=== PATIENT | female | born 1995 | race Caucasian/White ===

== ENCOUNTER → 2019-12-01 09:40 | Outpatient (BNVA) | payer MEDICAID, SELFPAY | PROVIDERS: Family Provider Nurse Practitioner; PCP Nurse Practitioner; Visit Provider Nurse Practitioner | DX: F84.0 Autistic disorder (principal); F71 Moderate intellectual disabilities; F33.9 Major depressive disorder, recurrent, unspecified | CPT/HCPCS: 99214 ==

== ENCOUNTER → 2020-02-01 08:38 | Outpatient (BNVA) | payer MEDICAID, SELFPAY | PROVIDERS: Family Provider Nurse Practitioner; PCP Nurse Practitioner; Visit Provider Nurse Practitioner | DX: F84.0 Autistic disorder (principal); F33.9 Major depressive disorder, recurrent, unspecified; Z11.1 Encounter for screening for respiratory tuberculosis | CPT/HCPCS: 80053; 85025 ==

== ENCOUNTER → 2020-02-16 07:47 | Outpatient (BNVA) | payer MEDICAID, SELFPAY | PROVIDERS: Family Provider Nurse Practitioner; PCP Nurse Practitioner; Visit Provider Nurse Practitioner | DX: F33.9 Major depressive disorder, recurrent, unspecified (principal); F71 Moderate intellectual disabilities; F84.0 Autistic disorder | CPT/HCPCS: 99214 ==

== ENCOUNTER → 2020-03-16 08:41 | Outpatient (BNVA) | payer MEDICAID, SELFPAY | PROVIDERS: Family Provider Nurse Practitioner; PCP Nurse Practitioner; Visit Provider Nurse Practitioner | DX: F33.9 Major depressive disorder, recurrent, unspecified (principal); F71 Moderate intellectual disabilities; F84.0 Autistic disorder | CPT/HCPCS: 80164 ==

== ENCOUNTER → 2020-05-10 08:55 | Outpatient (BNVA) | payer MEDICAID, SELFPAY | PROVIDERS: Family Provider Nurse Practitioner; PCP Nurse Practitioner; Visit Provider Nurse Practitioner | DX: F33.9 Major depressive disorder, recurrent, unspecified (principal); F71 Moderate intellectual disabilities; F84.0 Autistic disorder | CPT/HCPCS: 99214 ==

== ENCOUNTER → 2020-06-03 08:45 | Outpatient (BNVA) | payer MEDICAID, SELFPAY | PROVIDERS: Family Provider Nurse Practitioner; PCP Nurse Practitioner; Visit Provider Nurse Practitioner | DX: F33.9 Major depressive disorder, recurrent, unspecified (principal); F71 Moderate intellectual disabilities; F84.0 Autistic disorder | CPT/HCPCS: 80164 ==

== ENCOUNTER → 2020-07-13 07:42 | Outpatient (BNVA) | payer MEDICAID, SELFPAY | PROVIDERS: Family Provider Nurse Practitioner; PCP Nurse Practitioner; Visit Provider Nurse Practitioner | DX: F71 Moderate intellectual disabilities (principal); F84.0 Autistic disorder; F33.9 Major depressive disorder, recurrent, unspecified; F41.1 Generalized anxiety disorder | CPT/HCPCS: 99213 ==

== ENCOUNTER → 2020-09-07 10:06 | Outpatient (BNVA) | payer MEDICAID, SELFPAY | PROVIDERS: Family Provider Nurse Practitioner; PCP Nurse Practitioner; Visit Provider Nurse Practitioner | DX: Z79.899 Other long term (current) drug therapy (principal) | CPT/HCPCS: 80061; 83036 ==

== ENCOUNTER → 2020-10-11 07:48 | Outpatient (BNVA) | payer MEDICAID, SELFPAY | PROVIDERS: Family Provider Nurse Practitioner; PCP Nurse Practitioner; Visit Provider Nurse Practitioner | DX: F71 Moderate intellectual disabilities (principal); F33.9 Major depressive disorder, recurrent, unspecified | CPT/HCPCS: 99213 ==

== ENCOUNTER → 2021-01-05 10:03 | Outpatient (BNVA) | payer MEDICAID, SELFPAY | PROVIDERS: Family Provider Nurse Practitioner; PCP Nurse Practitioner; Visit Provider Nurse Practitioner | DX: F33.9 Major depressive disorder, recurrent, unspecified (principal); F71 Moderate intellectual disabilities; F84.0 Autistic disorder | CPT/HCPCS: 99214 ==

== ENCOUNTER → 2021-02-06 09:43 | Outpatient (BNVA) | payer MEDICAID, SELFPAY | PROVIDERS: Family Provider Nurse Practitioner; PCP Nurse Practitioner; Visit Provider Nurse Practitioner | DX: F84.0 Autistic disorder (principal); Z11.1 Encounter for screening for respiratory tuberculosis; J30.89 Other allergic rhinitis | CPT/HCPCS: 80053; 85025; 86592 ==

== ENCOUNTER → 2021-03-24 09:54 | Outpatient (BNVA) | payer MEDICAID, SELFPAY | PROVIDERS: Family Provider Nurse Practitioner; PCP Nurse Practitioner; Visit Provider Nurse Practitioner | DX: F71 Moderate intellectual disabilities (principal); F33.9 Major depressive disorder, recurrent, unspecified; F84.0 Autistic disorder | CPT/HCPCS: 99214 ==

== ENCOUNTER → 2021-04-14 11:01 | Outpatient (BNVA) | payer MEDICAID, SELFPAY | PROVIDERS: Family Provider Nurse Practitioner; PCP Nurse Practitioner; Visit Provider Nurse Practitioner Family | DX: R30.0 Dysuria (principal) | CPT/HCPCS: 81000 ==

== ENCOUNTER 2021-05-20 17:08 | Emergency (ER) | payer MEDICAID, SELFPAY ==
[2021-05-20 17:17] VITALS: BP 108/77; PULSE 108; RESP 22; TEMP 36.7; O2SAT 96; BMI 28.3
--- NOTE | 2021-05-20 17:27 | ECG_ITS ---
[facility] Test Date: 2021-05-20 Pat Name: Gris Luz Maria Department: Room: Gender: Female Electric Train Driver: : 1995 Requested By: Hoang Gtz Order Number: [id number] Radha MD: Yung Spencer M.D. Measurements Intervals [place] Rate: 126 P: 29 TN: 94 QRS: 33 QRSD: 172 T: 249 QT: 289 QTc: 418 Interpretive Statements Possible SINUS TACHYCARDIA WITH SHORT TN INTERVAL Heavy baseline artifact; need to repeat Defective EKG Electronically Signed On 05-21-2021 16:29:32 CDT by Yung Spencer M.D. [id number]
--- NOTE | 2021-05-20 17:38 | W.ED.ABDPA2 ---
HPI - Abdominal Pain General: Chief Complaint: Abdominal Pain Stated Complaint: no appetite sob Time Seen by Provider: 05/20/21 17:25 History of Present Illness: HPI narrative: Patient is a 25-year-old female comes to the ED with constipation. Patient has a past medical history of autistic disorder with moderate to severe intellectual disability. Patient is nonverbal and lives at the [facility] and has a fork lift truck operator that is present with her today and providing the history. Economic Research Assistant said patient has not had a bowel movement in about a week and she has had decreased appetite as well for the past week. Economic Research Assistant says patient chronically suffers with constipation. Although patient is nonverbal, fork lift truck operator sees signs of evidence of abdominal pain because she will put her hands over her abdomen on occasion. Patient has been given sennoside, but has not helped her bowel movements. Economic Research Assistant also noticed patient is little short of breath but is unsure if that is due to abdominal pain or something else. Denies any fever, chills, emesis, chest pain, diarrhea or UTI symptoms. Associated Symptoms: Reports constipation; Denies chills, diarrhea, dysuria, fever(s), hematochezia, hematuria, nausea and vomiting Review of Systems Const: Denies: fever(s), chills or fatigue Eyes: Denies: change in vision or eye discomfort ENMT: Denies: throat pain, odynophagia, nasal discharge or nasal congestion Card: Denies: chest pain, palpitations, edema, swelling of feet/ankles, dyspnea on exertion or orthopnea Resp: Reports: dyspnea; Denies: productive cough or non-productive cough GI: Reports: constipation; Denies: abdominal pain, nausea, vomiting, diarrhea or hematochezia : Denies: flank pain, dysuria or hematuria Musc: Denies: neck pain, back pain or extremity swelling Skin/Breast: Denies: rash or new lesions Neuro: Denies: headache(s), numbness in extremities or weakness in extremities PFSH ED PFSH: Medical History Autistic disorder Depo-Provera contraceptive status Environmental and seasonal allergies Major depressive disorder, recurrent, unspecified Moderate intellectual disabilities On combination antipsychotic drug therapy Surgical History No history of previous surgery Family History Other Unknown family medical history Social History Smoking and tobacco status: never smoked Second hand smoke exposure: No Smoking risk assessment/counseling performed?: No Alcohol intake: never Desire information about alcohol rehabilitation?: No Counseling given: No Desire information about substance/drug rehabilitation?: No Counseling given: No Adopted: No Caregiver/support person: Yes Lives independently: No Household members: other Housing: House Marital status: Single Number of children: 0 service: No Current occupational status: disabled Current occupational exposures/hazards: No Pets and animals: No History of recent travel: No Sexually active: No Current gender identity: Female Special maik needs: No Financial difficulty paying for basics: Not Applicable Physical Exam Const: COMMON NORMALS: no acute distress and alert EXAM LIMITATIONS: behavioral limitations (Patient has autism with moderate to severe intellectual disability) HENMT: COMMON NORMALS: normocephalic HEAD & SCALP: normocephalic MOUTH: Normal oral and palatal mucosa present THROAT: posterior oropharynx normal and uvula midline Neck/C-Spine: COMMON NORMALS: supple GENERAL: Yes normal visual inspection Resp: COMMON NORMALS: normal respiratory effort, No retractions, No use of accessory muscles and clear to auscultation bilaterally AUSCULTATION: clear to auscultation bilaterally Cardio: COMMON NORMALS: regular rate, regular rhythm, S1 normal heart sound present, S2 normal heart sound present, No gallops present (Cardio), No clicks present (Cardio), No murmurs present (Cardio) and Peripheral pulses 2+ throughout RATE: regular rate RHYTHM: regular rhythm HEART SOUNDS: S1 normal heart sound present and S2 normal heart sound present PERIPHERAL PULSES: Peripheral pulses 2+ throughout GI: COMMON NORMALS: Soft to palpation, non-tender and no masses AUSCULTATION: Yes Hypoactive bowel sounds present PALPATION: Yes Soft to palpation and No Guarding due to palpation present (GI) : COMMON NORMALS: Yes no CVA tenderness BLADDER/KIDNEY EXAM: Yes no CVA tenderness Back/Pelvis: COMMON NORMALS: no CVA tenderness Extremity: COMMON NORMALS: normal to inspection Neuro: SENSORIUM/ORIENTATION: Yes alert GAIT: Yes Normal gait present Skin: GENERAL SKIN EXAM: dry skin Course Reevaluation(s): Reevaluation #1: Patient ended up having a bowel movement while here in the ED. Vital Signs: Vital signs: Vital Signs Temperature 0 F L 05/20/21 20:58 Pulse Rate 0 L 05/20/21 20:58 Respiratory Rate 0 L 05/20/21 20:58 Blood Pressure 0/0 05/20/21 20:58 Pulse Oximetry 0 L 05/20/21 20:58 MDM - Abdominal Pain MDM Narrative: Medical decision making narrative: Patient is a 25-year-old female comes to the ED with constipation. Patient is nonverbal and has autism and moderate to severe intellectual disability. Patient lives at the [facility] and has a fork lift truck operator. Economic Research Assistant says she has not had a bowel movement in close to 7 days. Upon exam of patient she is moving around the room a lot and has trouble sitting still. She appears nontoxic and in no acute distress or pain. Patient's fork lift truck operator says this is normal for her. When palpating her abdomen she did not seem to show any signs of pain or tenderness and there is no guarding. She did have hypoactive bowel sounds. While here in the ED patient continued to get more agitated and resistant to any labs or imaging. She was unable to stay still long enough for x-ray to do imaging and for nursing to draw any labs. She was given a dose of Ativan and Benadryl to see if that would help calm her down and it did not work. Patient then had a bowel movement while here in the ED. Since she started getting more aggressive with staff I recommended that we send patient home with some mag citrate and a Fleet enema to help her with bowel movements while at the [facility]. Economic Research Assistant agreed and thought that it would be best for her to go back to the facility. I told fork lift truck operator to bring patient back if she is having any worsening symptoms. Follow-up with PCP in 7 days for reevaluation. Patient's fork lift truck operator understood and agreed with plan. Lab Data: Labs: Lab Results 05/20/21 Range/Units 18:10 Urine Color Yellow (Yellow) Urine Appearance Sl hazy (CLEAR) Urine pH 7 (5-7) Ur Specific Gravit y 1.010 (1.005-1.030) Urine Protein 1+ H (Negative) Urine Glucose (UA) Norm (Normal) Urine Ketones Negative (Negative) Urine Blood 3+ H (Negative) Urine Nitrate Negative (Negative) Urine Bilirubin Neg (Negative) Urine Urobilinogen 1 H (Negative) mg/dL Ur Leukocyte Donna ase 2+ H (Negative) Urine RBC 5-10 H (0-2) /hpf Urine WBC 5-10 H (0-5) /hpf Ur Squamous Epith Cells 5-10 H (0-5) /hpf Amorphous Sediment Not Reportable Urine Bacteria 2+ H (NONE) /hpf Discharge Plan Discharge Patient Disposition: Home Clinical Impression: Constipation Qualifiers: Constipation type: slow transit constipation Qualified Code(s): K59.01 - Slow transit constipation Condition: Stable Prescriptions: New Fleet Enema 19-7 gram/118 mL enema 118 ml RI ONCE PRN (Reason: constipation) Qty: 133 RF: 0 No Action medroxyprogesterone [Depo-Provera] 150 mg/mL suspension 150 mg IM .q 3 months Qty: 1 RF: 2 diphenhydramine HCl [Benadryl] 25 mg capsule 25 mg PO .2 times day PRN (Reason: allergy symptoms) Qty: 30 RF: 2 Probiotic 15 billion cell capsule, sprinkle 1 cap PO .2 times day Qty: 60 RF: 0 lorazepam [Ativan] 1 mg tablet 1 mg PO DAILY PRN (Reason: sevee agitation) Qty: 30 RF: 1 lorazepam [Ativan] 0.5 mg tablet 0.5 mg PO QID Qty: 120 RF: 2 divalproex [Depakote ER] 250 mg tablet extended release 24 hr 250 mg PO .COMPLEX Qty: 90 RF: 2 clonidine HCl 0.1 mg tablet 0.1 mg PO TID Qty: 90 RF: 2 chlorpromazine 50 mg tablet 50 mg PO QID Qty: 120 RF: 2 trazodone 100 mg tablet 300 mg PO .at bed Qty: 60 RF: 2 sertraline [Zoloft] 100 mg tablet 200 mg PO DAILY Qty: 60 RF: 2 quetiapine [Seroquel XR] 300 mg tablet extended release 24 hr 300 mg PO QID Qty: 120 RF: 2 loperamide [Imodium A-D] 2 mg tablet 2 mg PO TID PRN (Reason: loose stool) Qty: 7 RF: 5 sennosides [Senna Lax] 8.6 mg tablet 8.6 mg PO BID Qty: 60 RF: 5 acetaminophen 325 mg tablet 325 mg PO QID PRN (Reason: pain or fever) Qty: 30 RF: 2 Benadryl Itch Stopping 1-0.1 % cream 1 applic topical QID PRN (Reason: itching) Qty: 28.3 RF: 2 magnesium hydroxide [Milk of Magnesia] 400 mg/5 mL suspension 10 ml PO DAILY PRN (Reason: constipation) Qty: 400 RF: 5 Discharge Orders: Discharge ED (Routine); Ordered 05/20/21 Ordered By: Hoang Gtz Referrals: Anayeli Carr, SKEIN INSPECTOR-C [Primary Care Provider] - Discharge Diet: Regular Discharge Activity: Resume usual activity Patient Instructions: Constipation (ED) Activity Restrictions/Additional Instructions: Follow-up with medical provider as directed in 7 days for reevaluation. Have patient take the 296ml of magnesium citrate sent home with her tonight or tomorrow. Patient can use the Fleet enema tomorrow or the next day as needed for constipation. Continue taking all other previously prescribed medications. Make sure patient drinks plenty of fluids and stays hydrated. Return to the ER or your medical provider if condition worsens. Please read and understand discharge instructions. Thank you for choosing [facility] for your healthcare needs today. Please realize this is an emergency room and that we are providing you with a medical screening exam and this may not be complete and all inclusive of all the testing and or work up that you may need to determine your ailment or severity of your illness. It is very important that you follow up as instructed or that you return to the Emergency Department should you have concerns or if your condition changes or worsens in any way. Coding Level of Care Code ED Controls Technician for Trevor Fwd Exam Comprehensive
[2021-05-20 18:16] VITALS: BP 129/88; PULSE 98; RESP 16; O2SAT 98
[2021-05-20] MEDS: LORazepam 2 mg Tablet PO (18:43)
[2021-05-20] MEDS: diphenhydrAMINE 25 mg Capsule PO (18:43)
[2021-05-20 18:44] LABS: Urine Color Yellow (Yellow)
[2021-05-20 18:45] LABS: Bilirubin Urine Neg (Negative); Blood Urine 3+ (Negative); Glucose Urine UA Norm (Normal); Ketones Urine Negative (Negative); Leukocyte Esterase Urine 2+ (Negative); Nitrate Urine Negative (Negative); Protein Urine 1+ (Negative); Urine Appearance SL Hazy (CLEAR); Urobilinogen Urine 1 mg/dL (Negative); pH Urine 7 (5-7)
[2021-05-20 18:46] LABS: Add Urine Culture? Yes; Bacteria Urine 2+ /hpf
--- NOTE | 2021-05-20 20:27 | PC.NURSE ---
Patient will not tolerate any procedures at this time, she is combative with staff and care givers.
[2021-05-20 20:58] VITALS: BP 0/0; PULSE 0; RESP 0; TEMP -17.7; TEMP 0; O2SAT 0
== END 2021-05-20 21:00 | disposition home or self-care (01) ==
PROVIDERS: Emergency Provider Physician Assistant; PCP Nurse Practitioner
DX: K59.01 Slow transit constipation (principal); F84.0 Autistic disorder; F79 Unspecified intellectual disabilities
CPT/HCPCS: 81001; 87086; 93005; 99283

== ENCOUNTER → 2021-05-26 07:46 | Outpatient (BNVA) | payer MEDICAID, SELFPAY | PROVIDERS: PCP Nurse Practitioner; Visit Provider Nurse Practitioner | DX: F84.0 Autistic disorder (principal); F33.9 Major depressive disorder, recurrent, unspecified; F71 Moderate intellectual disabilities | CPT/HCPCS: 99214 ==

== ENCOUNTER → 2021-06-07 08:41 | Outpatient (BNVA) | payer MEDICAID, SELFPAY | PROVIDERS: PCP Nurse Practitioner; Visit Provider Nurse Practitioner | DX: F84.0 Autistic disorder (principal); F71 Moderate intellectual disabilities; Z79.899 Other long term (current) drug therapy | CPT/HCPCS: 80061; 80164 ==

== ENCOUNTER 2021-06-16 10:07 | Emergency (ER) | payer MEDICAID, SELFPAY ==
[2021-06-16 10:42] VITALS: PULSE 74; RESP 15; TEMP 36.7; O2SAT 95; BMI 26.9
--- NOTE | 2021-06-16 13:25 | XR_ITS ---
WS: [id number] KUB, AP view portable upright, 06/16/2021 Clinical Data: constipation Comparison: KUB, 05/24/2017. Findings: No abnormal intraabdominal masses or calcifications are seen. There is no dilatated small bowel or ev idence of obstruction. There is no free air beneath the diaphragms. There is air in the small bowel and colon. The inferior portion of the abdomen is not included on the examination. XR/XR KUB portable [id number] Impression: Moderate generalized ileus.
--- NOTE | 2021-06-16 13:26 | W.ED.ABDPA2 ---
HPI - Abdominal Pain General: Chief Complaint: Abdominal Pain Stated Complaint: NO BM X8 DAYS Time Seen by Provider: 06/16/21 13:18 History of Present Illness: HPI narrative: 25-year-old female presents emergency room accompanied by 2 caregivers. Stating she has not had a bowel movement for 8 days. She had seen a nurse practitioner give her Senokot and Colace that also used some aches make milk of magnesia and yesterday some mag museum citrate she had no response from it. Her intellectual disability is severe. To the point where she will not allow blood pressure and initially would not allow an exam. She has had problems with chronic constipation issues in the past. MD elicited complaint: abdominal pain Pertinent past history: none Radiation: none Exacerbating factors: nothing Relieving factors: nothing PFSH ED PFSH: Medical History Autistic disorder Depo-Provera contraceptive status Environmental and seasonal allergies Major depressive disorder, recurrent, unspecified Moderate intellectual disabilities On combination antipsychotic drug therapy On combination antipsychotic drug therapy On valproic acid therapy Surgical History No history of previous surgery Family History Other Unknown family medical history Social History Smoking and tobacco status: never smoked Second hand smoke exposure: No Smoking risk assessment/counseling performed?: No Alcohol intake: never Desire information about alcohol rehabilitation?: No Counseling given: No Desire information about substance/drug rehabilitation?: No Counseling given: No Adopted: No Caregiver/support person: Yes Lives independently: No Household members: other Housing: House Marital status: Single Number of children: 0 service: No Current occupational status: disabled Current occupational exposures/hazards: No Pets and animals: No History of recent travel: No Sexually active: No Current gender identity: Female Special maik needs: No Financial difficulty paying for basics: Not Applicable Physical Exam HENMT: COMMON NORMALS: normocephalic and atraumatic HEAD & SCALP: normocephalic and atraumatic Neck/C-Spine: COMMON NORMALS: no JVD Resp: COMMON NORMALS: normal respiratory effort, No retractions, No use of accessory muscles and clear to auscultation bilaterally AUSCULTATION: clear to auscultation bilaterally Cardio: COMMON NORMALS: no JVD, regular rate, regular rhythm and No murmurs present (Cardio) RATE: regular rate RHYTHM: regular rhythm GI: COMMON NORMALS: Soft to palpation and No hepatosplenomegaly present AUSCULTATION: Yes normoactive bowel sounds PALPATION: Yes Soft to palpation, No Tenderness to palpation present (GI), No Guarding due to palpation present (GI) and Yes No hepatosplenomegaly present Course Vital Signs: Vital signs: Vital Signs Temperature 98.0 F 06/16/21 10:42 Pulse Rate 74 06/16/21 10:42 Respiratory Rate 15 06/16/21 10:42 Pulse Oximetry 95 06/16/21 10:42 MDM - Abdominal Pain MDM Narrative: Medical decision making narrative: Lab abnormalities no significant constipation on the plain film. Increase lactulose till adequate results achieved follow-up with primary care Lab Data: Labs: Lab Results 06/16/21 06/16/21 06/16/21 Range/Units 14:15 14:15 14:15 WBC 4.4 (4.0-10.0) 10^3/ uL RBC 3.61 L (4.1-5.3) 10^6/u L Hgb 11.9 (11.5-15.3) g/dL Hct 36.0 L (37.0-47.0) % MCV 99.7 H (81-99) fl MCH 33.0 (28.0-34.0) pg MCHC 33.1 (30.0-36.0) g/dL RDW 11.7 L (12.1-15.1) % Plt Count 202 (130-400) 10^3/c mm MPV 10.4 (7.4-10.4) fL Neut % (Auto) 31.7 % Lymph % (Auto) 56.6 % Pine % (Auto) 11.5 % Eos % (Auto) 0.0 % Baso % (Auto) 0.2 % Neut # (Auto) 1.40 L (1.8-7.7) 10^3/u L Lymph # (Auto) 2.5 (0.8-4.8) 10^3/u L Pine # (Auto) 0.5 (0.2-0.9) 10^3/u L Eos # (Auto) 0.0 (0.0-0.8) 10^3/u L Baso # (Auto) 0.0 (0.0-0.1) 10^3/u L Nucleated RBC % (a uto) 0 % Nucleated RBCs # 0.0 /100WBC Sodium 137 (136-145) mmol/L Potassium 4.5 (3.5-5.1) mmol/L Chloride 103 (98-107) mmol/L Carbon Dioxide 24 (22-29) mmol/L Anion Gap 14.5 (5-19) BUN 12 (6-20) mg/dL Creatinine 0.6 (0.5-0.9) mg/dL GFR Calculation 119.9 (90-130) mL/min Glucose 100 (65-115) mg/dL Calculated Osmolal ity 284 L (285-295) mOsm/k g Calcium 8.6 (8.5-10.5) mg/dL Total Bilirubin 0.2 (0.15-1.2) mg/dL AST 15 (0-32) U/L ALT 9 (0-33) U/L Alkaline Phosphata se 43 (35-105) IU/L Total Protein 6.7 (6.6-8.7) g/dL Albumin 4.2 (3.5-5.2) g/dL Globulin 2.5 (1.3-4.6) g/dL Lipase 21 (13-60) U/L HCG, Qual Negative (Negative) Discharge Plan Discharge Patient Disposition: Home Clinical Impression: Chronic constipation, Autistic disorder, Moderate intellectual disabilities Condition: Stable Prescriptions: New lactulose 20 gram/30 mL solution 30 g PO BID Qty: 2880 RF: 0 No Action clonidine HCl 0.1 mg tablet 0.1 mg PO TID Qty: 90 RF: 2 chlorpromazine 50 mg tablet 50 mg PO QID Qty: 120 RF: 2 lorazepam [Ativan] 0.5 mg tablet 0.5 mg PO QID Qty: 120 RF: 2 sertraline [Zoloft] 100 mg tablet 200 mg PO DAILY Qty: 60 RF: 2 divalproex [Depakote ER] 250 mg tablet extended release 24 hr 250 mg PO .COMPLEX Qty: 90 RF: 2 quetiapine [Seroquel XR] 300 mg tablet extended release 24 hr 300 mg PO .COMPLEX Qty: 120 RF: 2 lorazepam [Ativan] 1 mg tablet 1 mg PO DAILY PRN (Reason: sevee agitation) Qty: 30 RF: 1 polyethylene glycol 3350 [Miralax] 17 gram/dose powder 17 g PO BID Qty: 850 RF: 11 docusate sodium [Colace] 100 mg capsule 100 mg PO BID Qty: 60 RF: 11 lactulose 20 gram/30 mL solution 20 g PO BID MDD SEE PHARMACY COMMENT PRN (Reason: constipation) Qty: 1200 RF: 11 polyethylene glycol 3350 [Miralax] 17 gram/dose powder 17 g PO DAILY PRN (Reason: constipation) Qty: 850 RF: 11 magnesium citrate Solution 150 ml PO BID PRN (Reason: constipation) Qty: 296 RF: 11 loperamide [Imodium A-D] 2 mg tablet 2 mg PO TID PRN (Reason: loose stool) Qty: 7 RF: 5 acetaminophen 325 mg tablet 325 mg PO QID PRN (Reason: pain or fever) Qty: 30 RF: 2 Benadryl Itch Stopping 1-0.1 % cream 1 applic topical QID MDD SEE PHARMACY COMMENT PRN (Reason: itching) Qty: 28.3 RF: 2 trazodone 100 mg tablet 300 mg PO BEDTIME RF: 0 Benadryl 25 mg capsule 25 mg PO BID PRN (Reason: allergy symptoms) RF: 0 Fleet Enema 19-7 gram/118 mL enema 118 ml AL PRN MDD SEE PHARAMCY COMMENT PRN (Reason: constipation) RF: 0 Depo-Provera 150 mg/mL suspension 150 mg IM Q90D RF: 0 Discharge Orders: Discharge ED (Routine); Ordered 06/16/21 Ordered By: Omid Gray Referrals: Anayeli Carr, NETWORK INTELLIGENCE ANALYST-C [Primary Care Provider] - Discharge Diet: Clear Liquid Discharge Activity: Increase activity as tolerated Patient Instructions: Opioid Safety Coding Level of Care Code ED Director Building for Trevor Ulloa
[2021-06-16 14:29] LABS: Basophils % 0.2 %; Hemoglobin 11.9 g/dL (11.5-15.3); Lymphocytes # 2.5 10^3/uL (0.8-4.8); Lymphocytes % 56.6 %; Mean Corpuscular HGB Conc 33.1 g/dL (30.0-36.0); Mean Corpuscular Volume 99.7 fl (81-99); Mean Platelet Volume 10.4 fL (7.4-10.4); Monocytes # 0.5 10^3/uL (0.2-0.9); Monocytes % 11.5 %; Neutrophils % 31.7 %; Nucleated Red Blood Cells % 0 %; Platelet Count 202 10^3/cmm (130-400); Red Blood Count 3.61 10^6/uL (4.1-5.3); Red Cell Distribution Width 11.7 % (12.1-15.1); White Blood Count 4.4 10^3/uL (4.0-10.0)
[2021-06-16 14:42] LABS: HCG, Serum Qual Negative (Negative)
[2021-06-16 14:51] LABS: Alanine Aminotransferase 9 U/L (0-33); Albumin Level 4.2 g/dL (3.5-5.2); Alkaline Phosphatase 43 IU/L (35-105); Anion Gap 14.5 (5-19); Aspartate Amino Transferase 15 U/L (0-32); Blood Urea Nitrogen 12 mg/dL (6-20); Calcium 8.6 mg/dL (8.5-10.5); Carbon Dioxide 24 mmol/L (22-29); Chloride 103 mmol/L (98-107); Globulin 2.5 g/dL (1.3-4.6); Glomerular Filtration Rate 119.9 mL/min (90-130); Glucose 100 mg/dL (65-115); Lipase 21 U/L (13-60); Osmolality Calculated 284 mOsm/kg (285-295); Potassium 4.5 mmol/L (3.5-5.1); Sodium 137 mmol/L (136-145); Total Bilirubin 0.2 mg/dL (0.15-1.2); Total Protein 6.7 g/dL (6.6-8.7)
== END 2021-06-16 15:06 | disposition home or self-care (01) ==
PROVIDERS: Emergency Provider Family Medicine; PCP Nurse Practitioner
DX: K59.09 Other constipation (principal); F84.0 Autistic disorder; F71 Moderate intellectual disabilities
CPT/HCPCS: 74018; 80053; 83690; 84703; 85025; 99282

== ENCOUNTER → 2021-06-20 13:28 | Outpatient (BNVA) | payer MEDICAID, SELFPAY | PROVIDERS: PCP Nurse Practitioner; Visit Provider Nurse Practitioner Family | DX: K59.09 Other constipation (principal); G47.10 Hypersomnia, unspecified; N39.0 Urinary tract infection, site not specified | CPT/HCPCS: 81000; 87086 ==

== ENCOUNTER → 2021-06-21 13:12 | Outpatient (BNVA) | payer MEDICAID, SELFPAY | PROVIDERS: PCP Nurse Practitioner; Visit Provider Nurse Practitioner | DX: F71 Moderate intellectual disabilities (principal); F84.0 Autistic disorder; F34.9 Persistent mood [affective] disorder, unspecified | CPT/HCPCS: 99214 ==

== ENCOUNTER → 2021-07-19 09:41 | Outpatient (BNVA) | payer MEDICAID, SELFPAY | PROVIDERS: PCP Nurse Practitioner; Visit Provider Nurse Practitioner | DX: F71 Moderate intellectual disabilities (principal); F84.0 Autistic disorder; F34.9 Persistent mood [affective] disorder, unspecified | CPT/HCPCS: 99214 ==

== ENCOUNTER → 2021-10-11 11:07 | Outpatient (BNVA) | payer MEDICAID, SELFPAY | PROVIDERS: PCP Nurse Practitioner; Visit Provider Nurse Practitioner | DX: F84.0 Autistic disorder (principal); F71 Moderate intellectual disabilities; F34.9 Persistent mood [affective] disorder, unspecified | CPT/HCPCS: 99214 ==

== ENCOUNTER 2022-01-08 10:38 | Emergency (ER) | payer MEDICAID, SELFPAY ==
[2022-01-08 11:00] VITALS: BP 106/77; PULSE 132; RESP 18; TEMP 36.3; O2SAT 96; BMI 23.6
--- NOTE | 2022-01-08 11:17 | XR_ITS ---
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 Healing fracture of the distal fifth metacarpal with no significant deformity. No other significant bony or joint abnormality. XR/XR hand RT min 3V* [id number] IMPRESSION: Healing fractures as above.
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
--- NOTE | 2022-01-08 11:17 | XR_ITS ---
WS: [id number] XR hand LT min 3V* [id number] REASON FOR EXAM: swelling in fingers FINDINGS: No fracture or focal bone lesion. The joint spaces of the left hand are well intact and well preserved. No soft tissue abnormality. XR/XR hand LT min 3V* [id number] IMPRESSION: No acute abnormality.
[2022-01-08] MEDS: HYDROcodone-acetaminophen 5-325 mg Tablet 1 TAB PO (12:22)
--- NOTE | 2022-01-09 10:44 | DCPLANNER ---
Addendum entered by Adela Sherman 02/14/22 20:46: Patient had a follow up appointment scheduled with ortho - patient did attend appointment. Addendum entered by Adela Sherman 01/10/22 07:43: Patient has a follow up appointment scheduled for Sunday, January 30, 2022 at 2:[address] Smith at ortho. Clinic will call patient with appointment information. Original Note: call or contact centre manager had message to schedule a follow up appointment for patient with ortho. call or contact centre manager sent patients information to the front staff at ortho thru workload messaging system. Patients information will be printed and reviewed. Clinic will call patient wit appointment information.
== END 2022-01-08 12:35 | disposition home or self-care (01) ==
PROVIDERS: Emergency Provider Physician Assistant; PCP Nurse Practitioner
DX: S62.64 Nondisplaced fracture of proximal phalanx of finger (principal); X58.XXXD Exposure to other specified factors, subsequent encounter; M79.89 Other specified soft tissue disorders; F84.0 Autistic disorder; F71 Moderate intellectual disabilities
CPT/HCPCS: 73130; 99283

== ENCOUNTER → 2022-01-10 09:57 | Outpatient (BNVA) | payer MEDICAID, SELFPAY | PROVIDERS: PCP Nurse Practitioner; Visit Provider Nurse Practitioner | DX: F84.0 Autistic disorder (principal); F34.9 Persistent mood [affective] disorder, unspecified; F71 Moderate intellectual disabilities | CPT/HCPCS: 99214 ==

== ENCOUNTER → 2022-01-26 11:29 | Outpatient (BNVA) | payer MEDICAID, SELFPAY | PROVIDERS: PCP Nurse Practitioner; Visit Provider Nurse Practitioner | DX: R39.9 Unspecified symptoms and signs involving the genitourinary system (principal) | CPT/HCPCS: 81003; 87077; 87086; 87184 ==

== ENCOUNTER → 2022-01-30 14:30 | Outpatient (BNVA) | payer MEDICAID, SELFPAY | PROVIDERS: PCP Nurse Practitioner; Referring Provider Physician Assistant; Visit Provider Orthopaedic Surgery | DX: S62.640A Nondisplaced fracture of proximal phalanx of right index finger, initial encounter for closed fracture (principal); X58.XXXA Exposure to other specified factors, initial encounter | CPT/HCPCS: 99202 ==

== ENCOUNTER → 2022-02-26 10:25 | Outpatient (BNVA) | payer MEDICAID, SELFPAY | PROVIDERS: PCP Nurse Practitioner; Visit Provider Nurse Practitioner | DX: Z11.3 Encounter for screening for infections with a predominantly sexual mode of transmission (principal); J30.89 Other allergic rhinitis; Z11.1 Encounter for screening for respiratory tuberculosis; F71 Moderate intellectual disabilities | CPT/HCPCS: 80053; 85025; 86592 ==

== ENCOUNTER → 2022-02-28 13:48 | Outpatient (BNVA) | payer MEDICAID, SELFPAY | PROVIDERS: PCP Nurse Practitioner; Visit Provider Nurse Practitioner | DX: Z11.3 Encounter for screening for infections with a predominantly sexual mode of transmission (principal); F84.0 Autistic disorder | CPT/HCPCS: 81000 ==

== ENCOUNTER → 2022-03-28 12:31 | Outpatient (BNVA) | payer MEDICAID, SELFPAY | PROVIDERS: PCP Nurse Practitioner; Visit Provider Nurse Practitioner | DX: F84.0 Autistic disorder (principal); F71 Moderate intellectual disabilities; F34.9 Persistent mood [affective] disorder, unspecified | CPT/HCPCS: 99214 ==

== ENCOUNTER → 2022-04-14 14:03 | Outpatient (BNVA) | payer MEDICAID, SELFPAY | PROVIDERS: PCP Nurse Practitioner; Visit Provider Registered Nurse Neonatal Intensive Care | DX: N39.0 Urinary tract infection, site not specified (principal); R39.9 Unspecified symptoms and signs involving the genitourinary system | CPT/HCPCS: 81000; 87086 ==

== ENCOUNTER 2022-07-09 11:43 | Emergency (ER) | payer MEDICAID, SELFPAY ==
[2022-07-09 11:55] VITALS: BP 124/88; PULSE 114; RESP 16; TEMP 36.4; O2SAT 98
--- NOTE | 2022-07-09 12:07 | XR_ITS ---
WS: [id number] XR shoulder RT min 2V* [id number] REASON FOR EXAM: fall injury with shoulder pain FINDINGS Suboptimal positioning for the examination. No acute fracture. There is deformity of the clavicle. Unable to determine the chronicity from the ro tated view. Acromioclavicular and glenohumeral joints are intact. No soft tissue abnormality. XR/XR shoulder RT min 2V* [id number] IMPRESSION: No definite acute abnormality. However, if there is pain over the right clavicl e, a nonrotated AP view is recommended in follow-up.
--- NOTE | 2022-07-09 12:52 | W.ED.FALL ---
HPI - Fall General: Chief Complaint: Fall Stated Complaint: fall-right shoulder/arm pain Time Seen by Provider: 07/09/22 11:59 History of Present Illness: Patient is a 26-year-old female that comes to the ED with right shoulder injury. Airline Dispatcher is providing history. Patient has history of moderate intellectual disability, autism and is nonverbal. She had a fall down some steps last night. Denies any head trauma, loss of consciousness or headaches. Patient has not been moving right arm much since injury. She has some bruising and swelling around her right shoulder and collarbone. Associated symptoms-after fall: Denies abdominal pain, chest pain, headache(s), hematuria or neck pain Review of Systems Const: Denies: fever(s), chills or fatigue Eyes: Denies: change in vision or eye discomfort ENMT: Denies: throat pain, odynophagia, nasal discharge or nasal congestion Card: Denies: chest pain, palpitations, edema, swelling of feet/ankles, dyspnea on exertion or orthopnea Resp: Denies: dyspnea, productive cough or non-productive cough GI: Denies: abdominal pain, nausea, vomiting, diarrhea, constipation or hematochezia : Denies: flank pain, dysuria or hematuria Musc: Reports: extremity pain (Right shoulder pain); Denies: neck pain, back pain or extremity swelling Skin/Breast: Denies: rash or new lesions Neuro: Denies: headache(s), numbness in extremities or weakness in extremities [facility] ED PFSH: Medical History Acute bacterial conjunctivitis of left eye Autistic disorder Depo-Provera contraceptive status Environmental and seasonal allergies Major depressive disorder, recurrent, unspecified Moderate intellectual disabilities On combination antipsychotic drug therapy On combination antipsychotic drug therapy On valproic acid therapy Persistent mood [affective] disorder, unspecified Psychiatric care Surgical History No history of previous surgery Family History Other Unknown family medical history Social History Smoking and tobacco status: never smoked Second hand smoke exposure: No Smoking risk assessment/counseling performed?: No Alcohol intake: never Desire information about alcohol rehabilitation?: No Counseling given: No Desire information about substance/drug rehabilitation?: No Counseling given: No Adopted: No Caregiver/support person: Yes Lives independently: No Household members: other Housing: House Marital status: Single Number of children: 0 service: No Current occupational status: disabled Current occupational exposures/hazards: No Pets and animals: No History of recent travel: No Sexually active: No Current gender identity: Female Special maik needs: No Financial difficulty paying for basics: Not Applicable Physical Exam Const: COMMON NORMALS: alert EXAM LIMITATIONS: other limitations (NonverbalModerate intellectual disability, autism and) HENMT: COMMON NORMALS: normocephalic HEAD & SCALP: normocephalic MOUTH: Normal oral and palatal mucosa present THROAT: posterior oropharynx normal and uvula midline Neck/C-Spine: COMMON NORMALS: supple GENERAL: Yes normal visual inspection Resp: COMMON NORMALS: normal respiratory effort, No retractions, No use of accessory muscles and clear to auscultation bilaterally AUSCULTATION: clear to auscultation bilaterally Cardio: COMMON NORMALS: regular rate, regular rhythm, S1 normal heart sound present, S2 normal heart sound present, No gallops present (Cardio), No clicks present (Cardio), No murmurs present (Cardio) and Peripheral pulses 2+ throughout RATE: regular rate RHYTHM: regular rhythm HEART SOUNDS: S1 normal heart sound present and S2 normal heart sound present PERIPHERAL PULSES: Peripheral pulses 2+ throughout GI: COMMON NORMALS: Normal to inspection, nondistended, normoactive bowel sounds present, Soft to palpation, non-tender and no masses PALPATION: Yes Soft to palpation : COMMON NORMALS: Yes no CVA tenderness BLADDER/KIDNEY EXAM: Yes no CVA tenderness Back/Pelvis: COMMON NORMALS: no CVA tenderness Extremity: NARRATIVE EXTREMITY EXAM: Right shoulder?ecchymosis and swelling noted around anterior aspect of right shoulder and right clavicle. Limited range of motion due to pain. Neurovascular tact distally. Neuro: SENSORIUM/ORIENTATION: Yes alert GAIT: Yes Normal gait present Skin: GENERAL SKIN EXAM: dry skin Course Vital Signs: Vital signs: Vital Signs Temperature 97.6 F 07/09/22 11:55 Pulse Rate 103 H 07/09/22 13:15 Respiratory Rate 19 H 07/09/22 13:15 Blood Pressure 117/80 07/09/22 13:15 Pulse Oximetry 97 07/09/22 13:15 Oxygen Delivery Me thod 07/09/22 11:55 MDM - Fall Medical Decision Making Patient is a 26-year-old female that comes to the ED with right shoulder injury. Airline Dispatcher is providing history. Patient has history of moderate intellectual disability, autism and is nonverbal. She had a fall down some steps last night. Denies any head trauma, loss of consciousness or headaches. Patient has not been moving right arm much since injury. Vital stable. X-ray shows ecchymosis swelling and tenderness of right clavicle. Shoulder x-ray shows right clavicle deformity. Patient diagnosed with a closed fracture of right clavicle and was put in a shoulder sling. I placed an order with case management for patient be referred to Ortho for follow-up. Patient was stable for discharge home and sent with prescription for tramadol for pain. Return ED precautions given. Patient's workday consultant understood agreed with plan. Lab Data Radiology Impressions Shoulder X-Ray 07/09/22 12:07 IMPRESSION: No definite acute abnormality. However, if there is pain over the right clavicle, a nonrotated AP view is recommended in follow-up. Discharge Plan Discharge Patient Disposition: Home Clinical Impression: Closed fracture of right clavicle Qualifiers: Encounter type: initial encounter Clavicle location: shaft Fracture alignment: nondisplaced Qualified Code(s): S42.024A - Nondisplaced fracture of shaft of right clavicle, initial encounter for closed fracture Condition: Stable Prescriptions: No Action promethazine-DM 6.25-15 mg/5 mL syrup 5 ml PO Q6H PRN (Reason: cough) Qty: 240 5RF acetaminophen 325 mg tablet 650 mg PO Q6H PRN (Reason: pain or fever) Qty: 30 2RF Rx Instructions: for pain or elevated temp > 101F amoxicillin 500 mg capsule 500 mg PO BID Qty: 20 0RF Probiotic Digestive Care 20 billion cell capsule See Rx Instructions PO DAILY Qty: 30 5RF Rx Instructions: 20 billion cell orally daily; trazodone 100 mg tablet 300 mg PO BEDTIME Qty: 90 2RF Benadryl Itch Stopping 1-0.1 % cream 1 applic topical QID MDD SEE PHARMACY COMMENT PRN (Reason: itching) Qty: 28.3 2RF loperamide [Imodium A-D] 2 mg tablet 2 mg PO TID PRN (Reason: loose stool) Qty: 7 5RF Coppertone Waterbaby SPF 50 See Rx Instructions .ROUTE .COMPLEX Qty: 8 0RF Rx Instructions: apply on skin 3 times day as needed to prevent sunburn; lorazepam [Ativan] 1 mg tablet 1 mg PO DAILY PRN (Reason: sevee agitation) Qty: 30 1RF Depo-Provera 150 mg/mL suspension 150 mg IM Q90D Qty: 1 2RF divalproex [Depakote ER] 250 mg tablet extended release 24 hr 250 mg PO .COMPLEX Qty: 90 2RF Rx Instructions: 250 mg PO; 1 tab in the am and 2 tabs at bedtime chlorpromazine 50 mg tablet 50 mg PO QID Qty: 120 2RF clonidine HCl 0.1 mg tablet 0.1 mg PO TID Qty: 90 2RF lorazepam [Ativan] 0.5 mg tablet 0.5 mg PO QID Qty: 120 2RF quetiapine [Seroquel] 300 mg tablet 300 mg PO BID Qty: 60 2RF quetiapine [Seroquel] 200 mg tablet 200 mg PO .HS Qty: 30 2RF sertraline [Zoloft] 100 mg tablet 200 mg PO DAILY Qty: 60 2RF diphenhydramine HCl [Benadryl] 25 mg capsule 25 mg PO BID PRN (Reason: allergy symptoms) Qty: 30 2RF docusate sodium [Colace] 100 mg capsule 100 mg PO BID Qty: 60 11RF lactulose 20 gram/30 mL solution 20 g PO BID MDD SEE PHARMACY COMMENT PRN (Reason: constipation) Qty: 1200 11RF Rx Instructions: administer after 3 days no bowel movement magnesium citrate Solution 150 ml PO BID PRN (Reason: constipation) Qty: 296 11RF Rx Instructions: administer after 5 days without bowel movement polyethylene glycol 3350 [Miralax] 17 gram/dose powder 17 g PO DAILY PRN (Reason: constipation) Qty: 850 11RF Rx Instructions: give BID if no bowel movement for 2 days, return to daily dosing for loose stools ibuprofen 800 mg tablet 800 mg PO Q8H PRN (Reason: pain) Qty: 30 0RF Discharge Orders: Discharge ED (Routine); Ordered 07/09/22 Ordered By: Hoang Gtz Referrals: Anaeyli Carr, [facility] [Primary Care Provider] - Discharge Diet: Regular Discharge Activity: Limit activity as instructed Patient Instructions: Clavicle Fracture (ED), Opioid Safety Activity Restrictions/Additional Instructions: Follow-up with medical provider as directed. Case management should be contacting you in the next several days set up appoint with Ortho for follow-up. Keep right shoulder in sling and limit activity to help with healing. Take medications as prescribed. Return to the ER or your medical provider if condition worsens. Please read and understand discharge instructions. Thank you for choosing [facility] for your healthcare needs today. Please realize this is an emergency room and that we are providing you with a medical screening exam and this may not be complete and all inclusive of all the testing and or work up that you may need to determine your ailment or severity of your illness. It is very important that you follow up as instructed or that you return to the Emergency Department should you have concerns or if your condition changes or worsens in any way. Coding Level of Care Code ED Video Game Animator for Trevor Fwd Exam Comprehensive
[2022-07-09 13:15] VITALS: BP 117/80; PULSE 103; RESP 19; O2SAT 97
[2022-07-09] MEDS: TRAMadol 50 mg Tablet 100 MG PO (13:26)
--- NOTE | 2022-07-09 14:20 | DCPLANNER ---
Addendum entered by Adela Sherman 09/26/22 10:53: Patient had a follow up appointment scheduled with ortho - patient did attend appointment. Addendum entered by Adela Sherman 07/10/22 06:05: Patient has a follow up appointment scheduled for Saturday, July 11, 2022 at 10:[address] Smith at ortho. Clinic will call patient with appointment information. Original Note: commercial leasing manager had message to schedule a follow up appointment for patient with ortho. commercial leasing manager sent patients information to the front office staff at ortho. Patients information will be printed and reviewed. Clinic will call patient with appointment information.
== END 2022-07-09 13:37 | disposition home or self-care (01) ==
PROVIDERS: Emergency Provider Physician Assistant; PCP Nurse Practitioner
DX: S42.024A Nondisplaced fracture of shaft of right clavicle, initial encounter for closed fracture (principal); F84.0 Autistic disorder; W10.8XXA Fall (on) (from) other stairs and steps, initial encounter
CPT/HCPCS: 73030; 99283

== ENCOUNTER → 2022-07-11 10:40 | Outpatient (BNVA) | payer MEDICAID, SELFPAY | PROVIDERS: PCP Nurse Practitioner; Referring Provider Physician Assistant; Visit Provider Orthopaedic Surgery | DX: W10.9XXA Fall (on) (from) unspecified stairs and steps, initial encounter (principal); S42.024A Nondisplaced fracture of shaft of right clavicle, initial encounter for closed fracture | CPT/HCPCS: 23500 ==

== ENCOUNTER → 2022-07-31 09:45 | Outpatient (BNVA) | payer MEDICAID, SELFPAY | PROVIDERS: PCP Nurse Practitioner; Visit Provider Nurse Practitioner | DX: Z79.899 Other long term (current) drug therapy (principal) | CPT/HCPCS: 80164 ==

== ENCOUNTER → 2022-08-08 09:30 | Outpatient (BNVA) | payer MEDICAID, SELFPAY | PROVIDERS: PCP Nurse Practitioner; Visit Provider Nurse Practitioner Family | DX: S42.024A Nondisplaced fracture of shaft of right clavicle, initial encounter for closed fracture (principal); W10.9XXA Fall (on) (from) unspecified stairs and steps, initial encounter | CPT/HCPCS: 73000; 99213 ==

== ENCOUNTER → 2022-12-24 08:28 | Outpatient (BNVA) | payer MEDICAID, SELFPAY | PROVIDERS: PCP Nurse Practitioner; Visit Provider Nurse Practitioner | DX: F33.9 Major depressive disorder, recurrent, unspecified (principal); Z79.899 Other long term (current) drug therapy | CPT/HCPCS: 80061; 80164; 83036 ==

== ENCOUNTER 2023-02-28 12:19 | Outpatient (CLI) | payer MEDICAID, SELFPAY ==
--- NOTE | 2023-02-28 12:25 | XR_ITS ---
WS: [id number] KUB, AP view, 02/28/2023 Clinical Data: K59.09 - Other constipation Comparison: KUB, 06/16/2021 Findings: No abnormal intraabdominal masses or calcifications are seen. There is bowel dilated in the left uppe r quadrant. There is minimal fecal material throughout the colon. XR/XR abdomen 1V* [id number] Impression: Probable localized left upper quadrant small bowel ileus.
== END 2023-02-28 12:20 | disposition home or self-care (01) ==
LOC: RAD 12:22
PROVIDERS: PCP Nurse Practitioner; Visit Provider Nurse Practitioner
DX: K59.09 Other constipation (principal); J30.89 Other allergic rhinitis; Z11.3 Encounter for screening for infections with a predominantly sexual mode of transmission
CPT/HCPCS: 74018; 80053; 80061; 81000; 85025; 86592

== ENCOUNTER 2023-04-08 08:14 | Inpatient (IN) | payer MEDICAID, SELFPAY ==
[2023-04-08] VITALS (12 sets, daily range): BP systolic 117–125; BP diastolic 60–83; PULSE 91–120; RESP 22–26; TEMP 36.4–37.1; O2SAT 85–94; BMI 28.3
--- NOTE | 2023-04-08 08:27 | XR_ITS ---
WS: [id number] PORTABLE CHEST HISTORY: dyspnea/cough COMPARISON: 08/27/2014 Significantly reduced lung volumes due to poor inspiration. Scattered areas of opacification bilatera lly but greatest on the RIGHT. Most likely due to combination of pneumonitis and atelectasis. No pleu ral effusion or pneumothorax. Cardiac size: Normal. Mediastinum/Aorta: Normal mediastinum. No osseous abnormality seen. Mild air distention of the visualized GI tract in the upper abdomen. XR/XR chest 1V portable [id number] IMPRESSION: 1. Bilateral scattered pulmonary opacifications, RIGHT greater than LEFT. Comb ination of mild pneumonitis and atelectasis. 2. Poor inspiration.
--- NOTE | 2023-04-08 08:31 | ED_ITS ---
HPI - General Adult General: Chief complaint: General Medical Stated complaint: fever/diarrhea/labored breath/cough Time Seen by Provider: 04/08/23 08:17 Source: other (Caregivers) History of Present Illness: 27-year-old female presents to the emergency room with reports of a high fever and diarrhea over the last 3 days. She is significantly autistic and is nonverbal. She lives in an [facility] caregivers have noted the fever over the weekend. She has had some cough and congestion as well. No recent antibiotics. Other residents at the home have also been ill with similar symptoms Onset (ago): day(s) (3) Severity: mild Relieving factors: none Exacerbating factors: none Treatments prior to arrival: none Review of Systems General: Reports: ROS unobtainable due to medical condition PFSH ED PFSH: Medical History Acute bacterial conjunctivitis of left eye Autistic disorder Depo-Provera contraceptive status Environmental and seasonal allergies Major depressive disorder, recurrent, unspecified Moderate intellectual disabilities On combination antipsychotic drug therapy On combination antipsychotic drug therapy On valproic acid therapy Persistent mood [affective] disorder, unspecified Psychiatric care Surgical History No history of previous surgery Family History (Updated 04/08/23 @ 09:25 by Brandon Robles MD) Other Cancer Social History Smoking and tobacco status: never smoked Second hand smoke exposure: No Smoking risk assessment/counseling performed?: No Alcohol intake: never Desire information about alcohol rehabilitation?: No Counseling given: No Substance/Drug Use: never Desire information about substance/drug rehabilitation?: No Counseling given: No Adopted: No Caregiver/support person: Yes Lives independently: No Household members: other Housing: House Marital status: Single Number of children: 0 service: No Current occupational status: disabled Current occupational exposures/hazards: No Pets and animals: No Sexually active: No Do you think of yourself as: Straight/Heterosexual Current gender identity: Female Special maik needs: No Financial difficulty paying for basics: Not Applicable Physical Exam HENMT: COMMON NORMALS: normocephalic, atraumatic and hearing grossly normal bilaterally HEAD & SCALP: normocephalic and atraumatic Resp: COMMON NORMALS: normal respiratory effort, No retractions, No use of accessory muscles and clear to auscultation bilaterally AUSCULTATION: clear to auscultation bilaterally Cardio: COMMON NORMALS: regular rate, regular rhythm and No murmurs present (Cardio) RATE: regular rate RHYTHM: regular rhythm GI: COMMON NORMALS: Soft to palpation and No hepatosplenomegaly present AUSCULTATION: Yes normoactive bowel sounds PALPATION: Yes Soft to palpation, No Tenderness to palpation present (GI), No Guarding due to palpation present (GI) and Yes No hepatosplenomegaly present Extremity: COMMON NORMALS: normal to inspection, capillary refill normal, no c lubbing, cyanosis or edema, no calf tenderness and no pedal edema Skin: COMMON NORMALS: no rashes or lesions noted GENERAL SKIN EXAM: no rashes or lesions noted Course Vital Signs: Vital signs: Vital Signs Temperature 98.7 F 04/08/23 08:27 Pulse Rate 109 H 04/08/23 11:47 Respiratory Rate 24 H 04/08/23 11:47 Blood Pressure 117/60 04/08/23 13:59 Pulse Oximetry 91 04/08/23 11:47 Oxygen Delivery Me thod Room Air, Non-Tana reather 04/08/23 11:47 Oxygen Flow Rate 10 04/08/23 11:47 [facility] - General Adult Medical Decision Making Right upper lobe pneumonia in the left upper lobe seems to be have some infiltrate to but not nearly as extensive. Patient is requiring oxygen which she does not normally require we will admit COVID testing is pending. Discussed with hospitalist orders written cultures and antibiotics initiated Medical Records I reviewed the patient's medical records. Lab Data I reviewed the patient's lab results. 04/08/23 08:57 04/08/23 08:57 Radiology Impressions Chest X-Ray 04/08/23 08:27 IMPRESSION: 1. Bilateral scattered pulmonary opacifications, RIGHT greater than LEFT. Combination of mild pneumonitis and atelectasis. 2. Poor inspiration. Laboratory Results WBC 6.7 10^3/uL (4.0-10.0) 04/08/23 08:57 RBC 3.50 10^6/uL (4.1-5.3) L 04/08/23 08:57 Hgb 11.1 g/dL (11.5-15.3) L 04/08/23 08:57 Hct 32.3 % (37.0-47.0) L 04/08/23 08:57 MCV 92.3 fl (81-99) 04/08/23 08:57 MCH 31.7 pg (28.0-34.0) 04/08/23 08:57 MCHC 34.4 g/dL (30.0-36.0) 04/08/23 08:57 RDW 11.5 % (12.1-15.1) L 04/08/23 08:57 Plt Count 214 10^3/cmm (130-400) 04/08/23 08:57 MPV 10.0 fL (7.4-10.4) 04/08/23 08:57 Neut % (Auto) 78.2 % 04/08/23 08:57 Lymph % (Auto) 10.9 % 04/08/23 08:57 Swift % (Auto) 8.4 % 04/08/23 08:57 Eos % (Auto) 0.0 % 04/08/23 08:57 Baso % (Auto) 0.6 % 04/08/23 08:57 Neut # (Auto) 5.21 10^3/uL (1.8-7.7) 04/08/23 08:57 Lymph # (Auto) 0.7 10^3/uL (0.8-4.8) L 04/08/23 08:57 Swift # (Auto) 0.6 10^3/uL (0.2-0.9) 04/08/23 08:57 Eos # (Auto) 0.0 10^3/uL (0.0-0.8) 04/08/23 08:57 Baso # (Auto) 0.0 10^3/uL (0.0-0.1) 04/08/23 08:57 Nucleated RBC % (auto) 0 % 04/08/23 08:57 Nucleated RBCs # 0.0 /100WBC 04/08/23 08:57 Sodium 122 mmol/L (136-145) L 04/08/23 08:57 Potassium 3.7 mmol/L (3.5-5.1) 04/08/23 08:57 Chloride 92 mmol/L (98-107) L 04/08/23 08:57 Carbon Dioxide 14 mmol/L (22-29) L 04/08/23 08:57 Anion Gap 19.7 (5-19) H 04/08/23 08:57 BUN 8 mg/dL (6-20) 04/08/23 08:57 Creatinine 0.7 mg/dL (0.5-0.9) 04/08/23 08:57 GFR Calculation 98.9 mL/min (90-130) 04/08/23 08:57 Glucose 163 mg/dL (65-115) H 04/08/23 08:57 Calculated Osmolality 256 mOsm/kg (285-295) L 04/08/23 08:57 Lactic Acid 1.7 mmol/L (0.5-2.2) 04/08/23 08:57 Calcium 8.6 mg/dL (8.5-10.5) 04/08/23 08:57 Total Bilirubin 0.2 mg/dL (0.15-1.2) 04/08/23 08:57 AST 19 U/L (0-32) 04/08/23 08:57 ALT 13 U/L (0-33) 04/08/23 08:57 Alkaline Phosphatase 49 U/L (35-105) 04/08/23 08:57 Total Protein 6.8 g/dL (6.6-8.7) 04/08/23 08:57 Albumin 3.4 g/dL (3.5-5.2) L 04/08/23 08:57 Globulin 3.4 g/dL (1.3-4.6) 04/08/23 08:57 TSH 1.68 uIU/mL (0.27-4.20) 04/08/23 08:57 Coronavirus 229E (PCR) Not detected (NOT DETECT) 04/08/23 09:12 Influenza Type A Ag negative (Negative) 04/08/23 09:12 Influenza Type B Ag negative (Negative) 04/08/23 09:12 SARS-CoV-2 (PCR) Not detected (NOT DETECT) 04/08/23 09:12 Discharge Plan Discharge Patient Disposition: Admitted As Inpatient Admit Provider: Brandon Robles Clinical Impression: Acute pneumonia, Hypoxia, Autistic disorder Condition: Stable Coding Level of Care Code ED Staffing Manager for Yannickg Artemio
[2023-04-08 09:03] LABS: Basophils % 0.6 %; Hematocrit 32.3 % (37.0-47.0); Hemoglobin 11.1 g/dL (11.5-15.3); Lymphocytes # 0.7 10^3/uL (0.8-4.8); Lymphocytes % 10.9 %; Mean Corpuscular HGB Conc 34.4 g/dL (30.0-36.0); Mean Corpuscular Hemoglobin 31.7 pg (28.0-34.0); Mean Corpuscular Volume 92.3 fl (81-99); Monocytes # 0.6 10^3/uL (0.2-0.9); Monocytes % 8.4 %; Neutrophils # 5.21 10^3/uL (1.8-7.7); Neutrophils % 78.2 %; Nucleated Red Blood Cells % 0 %; Platelet Count 214 10^3/cmm (130-400); Red Cell Distribution Width 11.5 % (12.1-15.1); White Blood Count 6.7 10^3/uL (4.0-10.0)
[2023-04-08 09:22] LABS: Alanine Aminotransferase 13 U/L (0-33); Albumin Level 3.4 g/dL (3.5-5.2); Alkaline Phosphatase 49 U/L (35-105); Aspartate Amino Transferase 19 U/L (0-32); Blood Urea Nitrogen 8 mg/dL (6-20); Calcium 8.6 mg/dL (8.5-10.5); Carbon Dioxide 14 mmol/L (22-29); Chloride 92 mmol/L (98-107); Globulin 3.4 g/dL (1.3-4.6); Glomerular Filtration Rate 98.9 mL/min (90-130); Glucose 163 mg/dL (65-115); Osmolality Calculated 256 mOsm/kg (285-295); Sodium 122 mmol/L (136-145); Total Bilirubin 0.2 mg/dL (0.15-1.2); Total Protein 6.8 g/dL (6.6-8.7)
--- NOTE | 2023-04-08 09:22 | PM.HP ---
Providers/Chief Complaint Admitting Physician: Brandon Robles MD Primary Care Provider: BRITTNY Vazquez Chief Complaint: fever/diarrhea/labored breath/cough History of Present Illness Gris Loera is a 27 year old female with autism who is cared for in an independent living situation who has had 3 days of illness with cough, congestion, fast breathing, and diarrhea. She has not had any vomiting. P.o. intake has decreased but she continues to drink fluids. Roommate has similar symptoms, and is tested negative for COVID. She is not quite as ill according to caregivers. They reports she has had wheezing with illnesses in the past. She has not been hospitalized for any respiratory conditions. She is unable to give any kind of significant verbal response secondary to her impairment with autism and developmental delay. Caregivers provide all of history. In the emergency department, Zosyn has been ordered, a fluid bolus. I have ordered dexamethasone and a DuoNeb treatment. Review of Systems General: Reports: ROS unobtainable due to medical condition Medications/Allergies Home Medications Medication Instructions Recorded Confirmed Last Taken Type loperamide 2 mg tablet (Imodium 2 mg PO TID PRN loose stool #7 tabs 07/19/21 04/08/23 Unknown Rx A-D) diphenhydramine HCl 25 mg capsule 25 mg PO BID PRN allergy symptoms 06/08/22 04/08/23 Unknown Rx (Benadryl) #30 caps acetaminophen 325 mg tablet 650 mg PO Q6H PRN pain or fever 09/07/22 04/08/23 Unknown Rx #30 tabs ibuprofen 200 mg tablet 200 mg PO Q12H PRN pain #60 tabs 10/30/22 04/08/23 Unknown Rx promethazine-DM 6.25 mg-15 mg/5 mL 5 ml PO Q6H PRN cough #240 mL 10/30/22 04/08/23 Unknown Rx oral syrup medroxyprogesterone 150 mg/mL 150 mg IM Q90D #1 mL 11/15/22 04/08/23 Unknown Rx intramuscular suspension (Depo-Provera) divalproex 250 mg tablet,extended 250 mg PO .COMPLEX #90 tabs 02/27/23 04/08/23 04/08/23 Rx release 24 hr (Depakote ER) lorazepam 0.5 mg tablet (Ativan) 0.5 mg PO QID anxiety #120 tabs 02/27/23 04/08/23 04/08/23 Rx Lactobacillus acidophilus 20 See Rx Instructions .Route .COMPLEX 04/08/23 04/08/23 04/08/23 History billion cell capsule (Florajen Acidophilus) chlorpromazine 100 mg tablet 100 mg PO TID@08,14,04/08/23 04/08/23 04/08/23 History clonidine HCl 0.1 mg tablet 0.1 mg PO TID@08,14,04/08/23 04/08/23 04/08/23 History diphenhydramine-zinc acetate 1 1 applic topical TID PRN itching 04/08/23 04/08/23 Unknown History %-0.1 % topical cream (Benadryl Itch Stopping) docusate sodium 100 mg capsule 100 mg PO BID@08,04/08/23 04/08/23 Unknown History (Colace) lactulose 20 gram/30 mL oral 20 g PO BID PRN if no bm x3 days 04/08/23 04/08/23 Unknown History solution lorazepam 1 mg tablet 1 mg PO DAILY PRN Agitation 04/08/23 04/08/23 Unknown History polyethylene glycol 3350 17 17 g PO DAILY@08 constipation 04/08/23 04/08/23 Unknown History gram/dose oral powder (Miralax) quetiapine 200 mg tablet (Seroquel) 200 mg PO BEDTIME@04/08/23 04/08/23 Unknown History quetiapine 300 mg tablet (Seroquel) 300 mg PO BID@08,04/08/23 04/08/23 04/08/23 History sertraline 100 mg tablet (Zoloft) 200 mg PO DAILY@08 04/08/23 04/08/23 04/08/23 History trazodone 100 mg tablet 300 mg PO BEDTIME@04/08/23 04/08/23 Unknown History Allergies Allergy/AdvReac Type Severity Reaction Status Date / Time white grapes Allergy Mild rash Uncoded 02/28/23 10:27 PFSH Acute PFSH: Medical History Acute bacterial conjunctivitis of left eye Autistic disorder Depo-Provera contraceptive status Environmental and seasonal allergies Major depressive disorder, recurrent, unspecified Moderate intellectual disabilities On combination antipsychotic drug therapy On combination antipsychotic drug therapy On valproic acid therapy Persistent mood [affective] disorder, unspecified Psychiatric care Surgical History No history of previous surgery Family History (Updated 04/08/23 @ 09:25 by Brandon Robles MD) Other Cancer Social History Smoking and tobacco status: never smoked Second hand smoke exposure: No Smoking risk assessment/counseling performed?: No Alcohol intake: never Desire information about alcohol rehabilitation?: No Counseling given: No Substance/Drug Use: never Desire information about substance/drug rehabilitation?: No Counseling given: No Adopted: No Caregiver/support person: Yes Lives independently: No Household members: other Housing: House Marital status: Single Number of children: 0 service: No Current occupational status: disabled Current occupational exposures/hazards: No Pets and animals: No Sexually active: No Do you think of yourself as: Straight/Heterosexual Current gender identity: Female Special maik needs: No Financial difficulty paying for basics: Not Applicable Vitals/I&O/Wt Last Vital Signs Temp 98.7 F 04/08/23 08:27 Resp 24 H 04/08/23 08:27 Pulse Ox 89 L 04/08/23 08:27 O2 Del Method Room Air 04/08/23 08:27 Weight last 48 hrs Weight 72.575 kg Physical Exam Narrative: General exam demonstrates a female, rocking, with fast breathing, who does not give me a verbal response. Caregivers are attentive. HEENT: Atraumatic, normocephalic. Unable to examine oropharynx fully. No obvious mouth lesions. Neck is supple no lymphadenopathy or thyromegaly Cardiovascular tachycardic, regular, no murmur Lungs demonstrate coarse breath sounds bibasilar. Occasional wheeze. Abdomen is soft. No obvious organomegaly. Bowel sounds are noted exam deferred Extremities no cyanosis clubbing or edema, cap refill brisk Skin no rash Neuro: Significantly impaired, not verbal for me, moves all extremities without difficulty. Appears neurologically intact. Data 04/08/23 08:57 04/08/23 08:57 Other Labs: CO2 is 14, anion gap is 20, glucose 163. Previous hemoglobin A1c earlier this year is 4.5% Albumin 3.4 COVID and influenza screening are pending Blood cultures are drawn Chest x-ray by my read demonstrates bilateral infiltrates, patchy, without effusion. No evidence of cardiomegaly. Micro: Microbiology 04/08/23 08:57 Blood Culture - Preliminary Blood SPECIMEN COLLECTED A&P Assessment and plan (1) Acute pneumonia: Patient with evidence of acute pneumonia. At this point secondary to recent GI illness cannot completely exclude aspiration. Zosyn has been initiated. Secondary to severity of illness we will go ahead and add Levaquin. This will cover any atypicals Sputum culture will not be able to be obtained Check MRSA PCR This is associated with wheezing. Will add DuoNeb every 4 hours, budesonide twice daily, dexamethasone 10 mg IV now and 6 mg IV daily Concerned with her tachypnea. Will need close monitoring. Her caregivers will end up staying with her to help administration of medication, oxygen etc. This will provide close supervision on the second floor. COVID PCR, influenza, viral panel pending Await lactate CBC, CMP in the morning (2) Hypoxia: Oxygen per facemask as she will not leave nasal cannula on Wean as tolerated (3) Autistic disorder: Associated with developmental delay, severe behavior problems. Continue her home medication. Plan Other medical problems as outlined in past medical history Full code Low risk for DVT, no prophylaxis Attestations Medical Necessity Statement*: Will require greater than 2 midnight stay for evaluation and treatment of pneumonia with hypoxemia. Diagnoses Acute pneumonia J18.9 Hypoxia R09.02 Autistic disorder F84.0 Time Spent (min) 42
[2023-04-08 09:23] LABS: Lactic Sepsis W/Reflex 1.7 mmol/L (0.5-2.2)
[2023-04-08 09:24] LABS: Anion Gap 19.7 (5-19); Potassium 3.7 mmol/L (3.5-5.1)
[2023-04-08] MEDS: ipratropium-albuterol 3 mL Neb INHALATION ×4 (09:36→19:47)
[2023-04-08 09:49] LABS: Influenza A by IFA negative (Negative); Influenza B by IFA negative (Negative)
[2023-04-08 11:10] LABS: Adenovirus Not Detected (NOT DETECT); Chlamydia Pneumoniae Not Detected (NOT DETECT); Coronavirus 229E,HKU1,NL63,OC4 Not Detected (NOT DETECT); Human Metapneumovirus Not Detected (NOT DETECT); Human Rhinovirus/Enterovirus Not Detected (NOT DETECT); Influenza A Not Detected (NOT DETECT); Influenza A H1 Not Detected (NOT DETECT); Influenza A H1-2009 Not Detected (NOT DETECT); Influenza A H3 Not Detected (NOT DETECT); Influenza B Not Detected (NOT DETECT); Mycoplasma Pneumoniae Detected (NOT DETECT); Parainfluenza Virus Type 1 Not Detected (NOT DETECT); Parainfluenza Virus Type 2 Not Detected (NOT DETECT); Parainfluenza Virus Type 3 Not Detected (NOT DETECT); Parainfluenza Virus Type 4 Not Detected (NOT DETECT); Respiratory Syncytial Virus A Not Detected (NOT DETECT); Respiratory Syncytial Virus B Not Detected (NOT DETECT); SARS-COV-2 Not Detected (NOT DETECT)
[2023-04-08 11:12] LABS: Chlamydia Pneumoniae Not Detected (NOT DETECT); Mycoplasma Pneumoniae Detected (NOT DETECT); Results from Genmark
[2023-04-08] MEDS: divalproex ER 250 mg Tablet (24H) PO (11:50)
[2023-04-08] MEDS: levofloxacin-dextrose 5 % 750 MG/150 ML PREMIX 100 MG IV (11:59)
[2023-04-08] MEDS: sodium chloride 0.9% 1,000 ML 999 ML IV (11:59)
[2023-04-08] MEDS: dexamethasone 10 mg/mL INJ IVP (12:00)
[2023-04-08 13:41] LABS: Thyroid Stimulating Hormone 1.68 uIU/mL (0.27-4.20)
[2023-04-08] MEDS: ondansetron 2 mg/ML SDV 2 mL 4 MG IVP (13:45)
[2023-04-08] MEDS: chlorPROMazine 50 mg Tablet 100 MG PO ×2 (13:45→20:04)
[2023-04-08] MEDS: LORazepam 0.5 mg Tablet PO ×3 (13:46→20:06)
[2023-04-08] MEDS: cloNIDine 0.1 mg Tablet PO ×2 (13:59→20:05)
[2023-04-08] MEDS: piperacillin-tazobactam 3.375 GM in sodium chloride 0.9% (plus) 50 ML IV ×2 (14:16→21:48)
[2023-04-08 14:17] LABS: Bilirubin Urine 1+ (Negative); Blood Urine Neg (Negative); Glucose Urine UA Norm (Normal); Ketones Urine 1+ (Negative); Nitrate Urine Negative (Negative); Protein Urine Trace (Negative); Specific Gravity, Urine 1.015 (1.005-1.030); Sulfosalicylic Acid Urine Negative (Negative); Urine Appearance Clear (CLEAR); Urine Color Dark Yellow (Yellow); Urobilinogen Urine 1 mg/dL (Negative); pH Urine 6.5 (5-7)
[2023-04-08 14:18] LABS: Add Urine Microscopic? YES; Amorphous Sediment Urine TRACE /hpf; Bacteria Urine TRACE /hpf; Leukocyte Esterase Urine Negative (Negative); Mucus Urine 1+ /hpf; Squamous Epithelial Cell Urine 0-4 /hpf (0-5); WBC Urine 0-4 /hpf (0-5)
[2023-04-08 14:19] LABS: Add Urine Culture? No; Hyaline Casts Urine RARE /lpf
[2023-04-08] MEDS: budesonide 0.5 mg/2 mL Neb INHALATION (19:47)
[2023-04-08] MEDS: docusate sodium 100 mg Capsule PO (20:05)
[2023-04-08] MEDS: trazodone 100 mg Tablet 300 MG PO (20:05)
[2023-04-08] MEDS: divalproex ER 500 mg Tablet (24H) PO (20:06)
[2023-04-08] MEDS: quetiapine 300 mg Tablet PO (20:26)
[2023-04-08] MEDS: quetiapine 100 mg Tablet 200 MG PO (20:26)
[2023-04-09] VITALS (16 sets, daily range): BP systolic 90–107; BP diastolic 60–75; PULSE 94–127; RESP 19–26; TEMP 36.8–39.2; O2SAT 80–94
--- NOTE | 2023-04-09 00:23 | PC.NURSE ---
Patient is nonverbal at baseline.
[2023-04-09] MEDS: ipratropium-albuterol 3 mL Neb INHALATION ×7 (00:31→23:47)
--- NOTE | 2023-04-09 04:50 | PC.NURSE ---
patient is ripping at bp cuff as staff is trying to put it on to check vitals, refuses to let check o2 and pulse. will try again in the morning
[2023-04-09 05:47] LABS: Basophils % 0.4 %; Hematocrit 31.5 % (37.0-47.0); Hemoglobin 10.9 g/dL (11.5-15.3); Lymphocytes # 1.3 10^3/uL (0.8-4.8); Lymphocytes % 22.6 %; Mean Corpuscular HGB Conc 34.6 g/dL (30.0-36.0); Mean Corpuscular Hemoglobin 31.7 pg (28.0-34.0); Mean Corpuscular Volume 91.6 fl (81-99); Mean Platelet Volume 10.6 fL (7.4-10.4); Monocytes # 0.5 10^3/uL (0.2-0.9); Monocytes % 8.1 %; Neutrophils % 67.1 %; Nucleated Red Blood Cells % 0 %; Platelet Count 247 10^3/cmm (130-400); Red Blood Count 3.44 10^6/uL (4.1-5.3); Red Cell Distribution Width 11.5 % (12.1-15.1); White Blood Count 5.7 10^3/uL (4.0-10.0)
[2023-04-09 06:10] LABS: Alanine Aminotransferase 17 U/L (0-33); Albumin Level 3.7 g/dL (3.5-5.2); Alkaline Phosphatase 46 U/L (35-105); Blood Urea Nitrogen 4 mg/dL (6-20); Calcium 8.6 mg/dL (8.5-10.5); Carbon Dioxide 20 mmol/L (22-29); Chloride 99 mmol/L (98-107); Creatinine Clr Calc Pharmacy 158.4818; Globulin 2.5 g/dL (1.3-4.6); Glomerular Filtration Rate 145.9 mL/min (90-130); Glucose 108 mg/dL (65-115); Osmolality Calculated 275 mOsm/kg (285-295); Sodium 134 mmol/L (136-145); Total Bilirubin 0.2 mg/dL (0.15-1.2); Total Protein 6.2 g/dL (6.6-8.7)
[2023-04-09 06:13] LABS: Anion Gap 19.1 (5-19); Aspartate Amino Transferase 24 U/L (0-32); Potassium 4.1 mmol/L (3.5-5.1)
[2023-04-09] MEDS: piperacillin-tazobactam 3.375 GM in sodium chloride 0.9% (plus) 50 ML IV (06:15)
[2023-04-09] MEDS: dexamethasone 10 mg/mL INJ 6 MG IVP (06:16)
[2023-04-09] MEDS: budesonide 0.5 mg/2 mL Neb INHALATION ×2 (07:37→19:57)
--- NOTE | 2023-04-09 08:19 | PM.PN ---
Subjective Subjective: Able to eat a small amount last night. Drinking well. Caregiver still report she is breathing significantly fast for her baseline, and having significant coughing fits. No vomiting. Medications: Reviewed: Yes Vitals/I&O/Wt Last Vital Signs Temp 97.6 F 04/08/23 19:31 Pulse 94 04/09/23 04:18 Resp 25 H 04/09/23 04:18 BP 125/83 04/08/23 20:05 Pulse Ox 90 04/09/23 04:18 O2 Del Method Room Air 04/09/23 04:18 O2 Flow Rate 10 04/08/23 11:47 04/08/23 04/09/23 04/09/23 22:59 06:59 14:59 Intake Total 1770.000 / 2160.000 50 / 2210.000 Balance 1770.000 / 1580.000 50 / 1630.000 Weight last 48 hrs Weight 72.575 kg Physical Exam Narrative: General exam demonstrates a female, sleeps through exam, tachypnea noted with mild retractions Neck is supple no lymphadenopathy or thyromegaly Cardiovascular tachycardic, regular, no murmur Lungs demonstrate coarse breath sounds bibasilar. Occasional wheeze. Abdomen is soft. No obvious organomegaly. Bowel sounds are noted Extremities no cyanosis clubbing or edema, cap refill brisk Data 04/09/23 05:35 04/09/23 05:35 Micro: Microbiology 04/08/23 10:20 Blood Culture - Preliminary Blood SPECIMEN COLLECTED 04/08/23 08:57 Blood Culture - Preliminary Blood SPECIMEN COLLECTED A&P Assessment and plan (1) Acute pneumonia: Patient with evidence of acute pneumonia. Requiring blow-by oxygen, she will not keep the mask on her face. At this point secondary to recent GI illness cannot completely exclude aspiration. Zosyn has been initiated. Secondary to severity of illness we will go ahead and add Levaquin. This will cover any atypicals. PCR positive for mycoplasma pneumonia Sputum culture will not be able to be obtained Weight MRSA PCR This is associated with wheezing. Will add DuoNeb every 4 hours, budesonide twice daily, dexamethasone 10 mg IV now and 6 mg IV daily Concerned with her tachypnea. Will need close monitoring. Her caregivers will end up staying with her to help administration of medication, oxygen etc. This will provide close supervision on the second floor. COVID and influenza are negative Repeat CBC and CMP in the morning With potential for high risk of decompensation. (2) Hypoxia: Oxygen per facemask as she will not leave nasal cannula on Wean as tolerated (3) Autistic disorder: Associated with developmental delay, severe behavior problems. Continue her home medication. Plan Hyponatremia, present on admission. This is improving without any significant treatment, on its own. Reevaluating mental function today to make sure still at baseline. Symptoms consistent with acute hyponatremia. Anion gap Improved. Repeat BMP tomorrow. Other medical problems as outlined in past medical history Full code Low risk for DVT, no prophylaxis Attestations Medical Necessity Statement*: Continued hospitalization for treatment of pneumonia with IV antibiotics secondary to her persistent tachypnea, borderline hypoxia, and this patient receiving currently blow-by oxygen, 100% at times. Is certainly difficult to tell how much FiO2 she is actually receiving. This is secondary to her underlying developmental disorder with autism, as she will not allow mask and nasal cannula on her face. Diagnoses Acute pneumonia J18.9 Hypoxia R09.02 Autistic disorder F84.0 Time Spent (min) 24
[2023-04-09] MEDS: cloNIDine 0.1 mg Tablet PO ×3 (09:15→20:09)
[2023-04-09] MEDS: quetiapine 300 mg Tablet PO ×2 (09:16→20:08)
[2023-04-09] MEDS: LORazepam 0.5 mg Tablet PO ×4 (09:16→20:10)
[2023-04-09] MEDS: divalproex ER 250 mg Tablet (24H) PO (09:16)
[2023-04-09] MEDS: sertraline 100 mg Tablet 200 MG PO (09:16)
[2023-04-09] MEDS: chlorPROMazine 50 mg Tablet 100 MG PO ×3 (09:16→20:08)
[2023-04-09] MEDS: levofloxacin-dextrose 5 % 750 MG/150 ML PREMIX 100 MG IV (11:16)
[2023-04-09] MEDS: divalproex ER 500 mg Tablet (24H) PO (20:08)
[2023-04-09] MEDS: quetiapine 100 mg Tablet 200 MG PO (20:08)
[2023-04-09] MEDS: trazodone 100 mg Tablet 300 MG PO (20:09)
[2023-04-09] MEDS: docusate sodium 100 mg Capsule PO (20:10)
[2023-04-09] MEDS: acetaminophen 325 mg Tablet 650 MG PO (20:19)
[2023-04-10] VITALS (13 sets, daily range): BP systolic 110–132; BP diastolic 60–84; PULSE 92–116; RESP 18–24; TEMP 36.8–37.4; O2SAT 89–98
[2023-04-10] MEDS: ipratropium-albuterol 3 mL Neb INHALATION ×4 (04:03→15:38)
[2023-04-10] MEDS: levoFLOXacin 750 mg Tablet PO (05:21)
[2023-04-10 05:56] LABS: Hematocrit 28.9 % (37.0-47.0); Hemoglobin 9.7 g/dL (11.5-15.3); Mean Corpuscular HGB Conc 33.6 g/dL (30.0-36.0); Mean Corpuscular Hemoglobin 31.6 pg (28.0-34.0); Mean Corpuscular Volume 94.1 fl (81-99); Mean Platelet Volume 9.3 fL (7.4-10.4); Platelet Count 306 10^3/cmm (130-400); Red Blood Count 3.07 10^6/uL (4.1-5.3); Red Cell Distribution Width 11.8 % (12.1-15.1); White Blood Count 5.2 10^3/uL (4.0-10.0)
[2023-04-10 06:19] LABS: Anion Gap 13.3 (5-19); Blood Urea Nitrogen 3 mg/dL (6-20); Calcium 8.2 mg/dL (8.5-10.5); Carbon Dioxide 26 mmol/L (22-29); Chloride 92 mmol/L (98-107); Creatinine Clr Calc Pharmacy 158.4818; Glomerular Filtration Rate 145.9 mL/min (90-130); Glucose 108 mg/dL (65-115); Osmolality Calculated 263 mOsm/kg (285-295); Potassium 3.3 mmol/L (3.5-5.1); Sodium 128 mmol/L (136-145)
[2023-04-10] MEDS: budesonide 0.5 mg/2 mL Neb INHALATION (08:19)
--- NOTE | 2023-04-10 08:30 | XR_ITS ---
WS: [id number] XR chest 1V portable [id number] REASON FOR EXAM: fever FINDINGS: There are increased interstitial and airspace lung opacities in the lower lung shaw significantly m ore prominent than on 04/08/2023. No new chest findings. XR/XR chest 1V portable [id number] IMPRESSION: Increased lung opacities compared to the previous examination.
[2023-04-10 08:52] LABS: Slide Review Slide Review Perform
[2023-04-10 08:56] LABS: Absolute Segmented Neutrophil 2.3 10/cmm (1.6-7.1); Band Neutrophils Absolute 0.1 10^3/cmm (0.0-1.2); Eosinophils 0 %; Lymphocytes 32 %; Lymphocytes Absolute 1.7 10^3/cmm (1.2-3.4); Monocytes Absolute 0.2 10^3/cmm (0.1-0.6); Segmented Neutrophils 44 %; Total Cells Counted 100 (0-100)
[2023-04-10 08:57] LABS: Absolute Neutrophil 2.4 10^3/cmm (1.4-6.5); Blastocytes 0 % (0-0); Giant Platelets Trace; Macrocytosis 1+; Platelet Estimate Normal (Normal)
[2023-04-10] MEDS: polyethylene glycol 3350 Pkt 17 gm PO (10:34)
[2023-04-10] MEDS: docusate sodium 100 mg Capsule PO ×2 (10:35→20:31)
[2023-04-10] MEDS: quetiapine 300 mg Tablet PO ×2 (10:35→20:31)
[2023-04-10] MEDS: divalproex ER 250 mg Tablet (24H) PO (10:35)
[2023-04-10] MEDS: cloNIDine 0.1 mg Tablet PO ×2 (10:35→20:30)
[2023-04-10] MEDS: sertraline 100 mg Tablet 200 MG PO (10:36)
[2023-04-10] MEDS: LORazepam 0.5 mg Tablet PO ×4 (10:36→20:30)
[2023-04-10] MEDS: chlorPROMazine 50 mg Tablet 100 MG PO ×3 (10:36→20:29)
[2023-04-10] MEDS: potassium chloride ER 20 mEq Tablet 40 MEQ PO (10:36)
--- NOTE | 2023-04-10 11:21 | PM.PN ---
Subjective Subjective: Caregiver is present in the room. Reports the patient is coughing more. Tmax of 102.6 yesterday. Secondary to this I ordered a chest x-ray repeat. Yesterday she lost her IV, was doing better clinically and nursing called me to change antibiotics to p.o. which was done. Caregiver also notes she seems to be coughing with solid food intake. Medications: Reviewed: Yes Vitals/I&O/Wt Last Vital Signs Temp 99 F 04/10/23 07:19 Pulse 101 H 04/10/23 08:00 Resp 20 H 04/10/23 08:00 BP 110/69 04/10/23 10:35 Pulse Ox 89 L 04/10/23 08:00 O2 Del Method Room Air 04/10/23 08:00 O2 Flow Rate 10 04/08/23 11:47 04/09/23 04/10/23 04/10/23 22:59 06:59 14:59 Intake Total 240 / 1160 120 / 120 Balance 240 / 710 120 / 120 Physical Exam Narrative: General exam demonstrates a female, awakens easily, mild retractions and tachypnea Neck is supple no lymphadenopathy or thyromegaly Cardiovascular tachycardic, regular, no murmur Lungs demonstrate coarse breath sounds bibasilar. Occasional wheeze. Abdomen is soft. No obvious organomegaly. Bowel sounds are noted Extremities no cyanosis clubbing or edema, cap refill brisk Data 04/10/23 05:40 04/10/23 05:40 Micro: Microbiology 04/08/23 14:09 MRSA Culture - Final Nose 04/08/23 10:20 Blood Culture - Preliminary Blood NEGATIVE TO DATE 04/08/23 08:57 Blood Culture - Preliminary Blood NEGATIVE TO DATE A&P Assessment and plan (1) Acute pneumonia: Patient with evidence of acute pneumonia. Saturating about 90% on room air Recurrence of fever, 102.6 yesterday. Chest x-ray today demonstrates bilateral infiltrates, per my read worse than previous. No evidence of effusion. Again cannot rule out aspiration. MRSA PCR negative Initiate meropenem IV, change Levaquin to IV. Note that she has a positive PCR for mycoplasma Speech therapy consultation Continue DuoNeb every 4 hours, budesonide twice daily, dexamethasone6 mg IV daily Repeat COVID Repeat CBC and CMP in the morning Clinically worse. Continue to monitor closely. High risk for worsening. Check BNP on blood in lab secondary to bilateral infiltrates, hyponatremia (2) Hypoxia: Borderline need for oxygen. Does desaturate with coughing. (3) Autistic disorder: Associated with developmental delay, severe behavior problems. Continue her home medication. Plan Hyponatremia, present on admission. This is improving without any significant treatment, on its own. Today 128. Repeat tomorrow. Other medical problems as outlined in past medical history Full code Low risk for DVT, no prophylaxis Attestations Medical Necessity Statement*: Continued hospital stay for IV antibiotics secondary to pneumonia, with some worsening today. Diagnoses Acute pneumonia J18.9 Hypoxia R09.02 Autistic disorder F84.0 Time Spent (min) 26
[2023-04-10] MEDS: meropenem 2,000 MG in sodium chloride 0.9% (100 ml) 100 ML 200 MG IV (12:00)
[2023-04-10 12:09] LABS: NT Pro B Type Natriuretic Pept 554 pg/mL (0-125)
[2023-04-10 13:18] LABS: Adenovirus Not Detected (NOT DETECT); Chlamydia Pneumoniae Not Detected (NOT DETECT); Coronavirus 229E,HKU1,NL63,OC4 Not Detected (NOT DETECT); Human Metapneumovirus Not Detected (NOT DETECT); Human Rhinovirus/Enterovirus Not Detected (NOT DETECT); Influenza A Not Detected (NOT DETECT); Influenza A H1 Not Detected (NOT DETECT); Influenza A H1-2009 Not Detected (NOT DETECT); Influenza A H3 Not Detected (NOT DETECT); Influenza B Not Detected (NOT DETECT); Mycoplasma Pneumoniae Not Detected (NOT DETECT); Parainfluenza Virus Type 1 Not Detected (NOT DETECT); Parainfluenza Virus Type 2 Not Detected (NOT DETECT); Parainfluenza Virus Type 3 Not Detected (NOT DETECT); Parainfluenza Virus Type 4 Not Detected (NOT DETECT); Respiratory Syncytial Virus A Not Detected (NOT DETECT); Respiratory Syncytial Virus B Not Detected (NOT DETECT); SARS-COV-2 Not Detected (NOT DETECT)
[2023-04-10] MEDS: trazodone 100 mg Tablet 300 MG PO (20:30)
[2023-04-10] MEDS: divalproex ER 500 mg Tablet (24H) PO (20:30)
[2023-04-10] MEDS: quetiapine 100 mg Tablet 200 MG PO (20:31)
[2023-04-11] VITALS (14 sets, daily range): BP systolic 113–145; BP diastolic 66–94; PULSE 78–118; RESP 16–24; TEMP 36.4–37.2; O2SAT 92–96
[2023-04-11] MEDS: ipratropium-albuterol 3 mL Neb INHALATION ×6 (00:28→20:26)
--- NOTE | 2023-04-11 04:40 | PC.NURSE ---
At beginning of shift, patient did not have IV access. Patient requiring ultrasound to get IV access. No ED or ICU staff member available to assist for a long period due to them being busy with patient care in their departments. Staff on Med-Surg not trained to use US machine. US guided IV placed by ICU nurse with the assistance of multiple staff members and multiple attempts. Access obtained approximately 4 am. IV Lasix and IV antibiotics re-timed.
[2023-04-11] MEDS: FUROsemide 10 mg/mL SDV 2mL 20 MG IVP (05:00)
[2023-04-11] MEDS: meropenem 2,000 MG in sodium chloride 0.9% (100 ml) 100 ML 200 MG IV ×3 (05:00→22:02)
[2023-04-11] MEDS: levofloxacin-dextrose 5 % 750 MG/150 ML PREMIX 100 MG IV (06:20)
[2023-04-11] MEDS: cloNIDine 0.1 mg Tablet PO ×3 (08:11→20:53)
[2023-04-11] MEDS: LORazepam 0.5 mg Tablet PO ×4 (08:11→20:52)
[2023-04-11] MEDS: divalproex ER 250 mg Tablet (24H) PO (08:11)
[2023-04-11] MEDS: sertraline 100 mg Tablet 200 MG PO (08:11)
[2023-04-11] MEDS: quetiapine 300 mg Tablet PO ×2 (08:11→21:03)
[2023-04-11] MEDS: budesonide 0.5 mg/2 mL Neb INHALATION ×2 (08:15→20:26)
[2023-04-11] MEDS: chlorPROMazine 50 mg Tablet 100 MG PO ×3 (08:27→20:53)
--- NOTE | 2023-04-11 08:32 | PM.PN ---
Subjective Subjective: Coughing quite a bit. Tachypnea persists. IV was placed yesterday to resume IV antibiotics. Medications: Reviewed: Yes Vitals/I&O/Wt Last Vital Signs Temp 99.0 F 04/11/23 04:00 Pulse 79 04/11/23 08:20 Resp 24 H 04/11/23 08:20 BP 113/69 04/11/23 08:11 Pulse Ox 95 04/11/23 08:20 O2 Del Method Room Air 04/11/23 08:20 O2 Flow Rate 0 04/10/23 20:41 04/10/23 04/11/23 04/11/23 22:59 06:59 14:59 Intake Total 1200 / 1660 500 / 2160 Balance 1200 / 1660 500 / 2160 Physical Exam Narrative: General exam demonstrates a female, chair, receiving breathing treatment, tachypneic with mild suprasternal retractions Cardiovascular tachycardic, regular, no murmur Lungs demonstrate coarse breath sounds bibasilar. No wheezing noted. Abdomen is soft. No obvious organomegaly. Bowel sounds are noted Extremities no cyanosis clubbing or edema, cap refill brisk Data 04/10/23 05:40 04/10/23 05:40 A&P Assessment and plan (1) Acute pneumonia: Patient with evidence of acute pneumonia. Saturating about 90 to 92% on room air Temperature improved Still with significant retractions Chest x-ray yesterday demonstrated worsening, no effusion Again cannot rule out aspiration. Speech therapy consulted. Diet changed. MRSA PCR negative Continue meropenem IV, Levaquin IV. Note that she has a positive PCR for mycoplasma Continue DuoNeb every 4 hours, budesonide twice daily Repeat COVID is negative Awaiting laboratory this morning Still without significant clinical improvement to allow discharge home. X-ray is concerning for development of ARDS even though she is not yet requiring oxygen. BNP was slightly elevated, echo ordered but unable to be performed secondary to patient agitation. I doubt significant cardiac dysfunction. Laboratory tomorrow Add Prednisone secondary to wheezing (2) Hypoxia: Borderline need for oxygen. Does desaturate with coughing. (3) Autistic disorder: Associated with developmental delay, severe behavior problems. Continue her home medication. Plan Hyponatremia, present on admission. Pending lab. Repeat tomorrow as well. Not administering IV fluids. Other medical problems as outlined in past medical history Full code Low risk for DVT, no prophylaxis Attestations Medical Necessity Statement*: Needs continued hospitalization for IV antibiotics secondary to extensive pneumonia, recent fever, high risk for decompensation with worsening x-ray. Diagnoses Acute pneumonia J18.9 Hypoxia R09.02 Autistic disorder F84.0 Time Spent (min) 24
[2023-04-11] MEDS: predniSONE 20 mg Tablet 40 MG PO (09:33)
[2023-04-11] MEDS: diphenhydrAMINE 25 mg Capsule PO (11:19)
[2023-04-11 13:48] LABS: Basophils # 0.1 10^3/uL (0.0-0.1); Basophils % 0.9 %; Hemoglobin 10.5 g/dL (11.5-15.3); Lymphocytes % 17.7 %; Mean Corpuscular HGB Conc 33.9 g/dL (30.0-36.0); Mean Corpuscular Hemoglobin 31.9 pg (28.0-34.0); Mean Corpuscular Volume 94.2 fl (81-99); Mean Platelet Volume 9.1 fL (7.4-10.4); Monocytes # 0.4 10^3/uL (0.2-0.9); Monocytes % 7.3 %; Neutrophils # 3.04 10^3/uL (1.8-7.7); Neutrophils % 56.7 %; Nucleated Red Blood Cells % 0 %; Platelet Count 434 10^3/cmm (130-400); Red Blood Count 3.29 10^6/uL (4.1-5.3); Red Cell Distribution Width 11.9 % (12.1-15.1); White Blood Count 5.4 10^3/uL (4.0-10.0)
[2023-04-11 14:08] LABS: Alanine Aminotransferase 25 U/L (0-33); Albumin Level 3.4 g/dL (3.5-5.2); Alkaline Phosphatase 49 U/L (35-105); Anion Gap 19.6 (5-19); Aspartate Amino Transferase 35 U/L (0-32); Blood Urea Nitrogen 3 mg/dL (6-20); Calcium 8.9 mg/dL (8.5-10.5); Carbon Dioxide 21 mmol/L (22-29); Chloride 94 mmol/L (98-107); Globulin 3.3 g/dL (1.3-4.6); Glomerular Filtration Rate 188.7 mL/min (90-130); Glucose 124 mg/dL (65-115); Osmolality Calculated 268 mOsm/kg (285-295); Potassium 4.6 mmol/L (3.5-5.1); Sodium 130 mmol/L (136-145); Total Bilirubin 0.2 mg/dL (0.15-1.2); Total Protein 6.7 g/dL (6.6-8.7)
[2023-04-11 14:30] LABS: Slide Review Slide Review Perform
[2023-04-11] MEDS: LORazepam 1 mg Tablet PO (14:59)
[2023-04-11] MEDS: docusate sodium 100 mg Capsule PO (20:53)
[2023-04-11] MEDS: quetiapine 100 mg Tablet 200 MG PO (20:53)
[2023-04-11] MEDS: divalproex ER 500 mg Tablet (24H) PO (20:53)
[2023-04-11] MEDS: trazodone 100 mg Tablet 300 MG PO (20:53)
[2023-04-12] MEDS: ipratropium-albuterol 3 mL Neb INHALATION ×3 (01:16→07:40)
[2023-04-12 01:17] VITALS: O2SAT 96
[2023-04-12 01:55] VITALS: BP 105/70; PULSE 79; RESP 18; O2SAT 91
[2023-04-12 03:14] VITALS: PULSE 80; RESP 16; O2SAT 95
[2023-04-12 03:17] VITALS: BP 110/67; PULSE 80; RESP 12; TEMP 36.6; O2SAT 95
[2023-04-12] MEDS: meropenem 2,000 MG in sodium chloride 0.9% (100 ml) 100 ML 200 MG IV (05:30)
[2023-04-12] MEDS: levofloxacin-dextrose 5 % 750 MG/150 ML PREMIX 100 MG IV (06:14)
[2023-04-12] MEDS: budesonide 0.5 mg/2 mL Neb INHALATION (07:40)
[2023-04-12 08:00] VITALS: BP 91/62; PULSE 125; RESP 17; TEMP 36.7; O2SAT 93
--- NOTE | 2023-04-12 08:33 | P.DS_ITS ---
Discharge Providers Date of Admission: 04/08/23 09:42 Date of Discharge: April 12, 2023 Attending Provider at Admission: Brandon Robles MD Attending Provider at Discharge: Brandon Robles MD Primary Care Provider: BRITTNY Vazquez Diagnoses at Discharge Discharge Diagnosis (1) Acute pneumonia: Status: Acute (2) Hypoxia: Status: Acute (3) Autistic disorder: Status: Chronic Reason for Visit Reason for Visit: fever/diarrhea/labored breath/cough Hospital Course Hospital Course Krista is a 27-year-old white female with developmental delay and autism that presented to the hospital with cough, fever, shortness of breath. She was found to have bilateral pneumonia. She was admitted and placed on Levaquin and Zosyn. There were some challenges with her hospital care secondary to her oxygen. IVs were frequently pulled out. She was eventually changed to meropenem with her Levaquin. PCR was positive for mycoplasma pneumonia. MRSA PCR negative. BNP was slightly elevated, but patient would not allow echocardiogram despite multiple approaches. She required oxygen initially, but often had to be given blow-by that she would not keep this on her face. However, with the above treatment she did gradually improved. By end of hospital stay she was afebrile. She was on room air. She was breathing better. It was thought she could discharge to home on 2 more days of prednisone, Augmentin and doxycycline for 5 days. I discussed in detail the care and follow-up that would be needed with her caregiver who asked appropriate questions and agreed with the plan. Recommend BMP on follow-up with nurse practitioner in 4 to 7 days as she had mild hyponatremia. Would also recommend a repeat chest x-ray to show clearing of infiltrate in approximately 3 weeks. Return for any worsening, fever, shortness of breath Physical Exam Narrative: General exam no distress Cardiovascular regular rate and rhythm, no murmur. She was not tachycardic when I auscultated her with a heart rate less than 100 Lungs slightly coarse but no wheezes today Abdomen is soft, positive bowel sounds Extremities no cyanosis clubbing or edema. Discharge Data Studies Completed and Pending Completed Studies During Hospitalization Category Date Time Status XR chest 1V portable [id number] Routine Exams 04/10/23 08:30 Completed XR chest 1V portable [id number] Stat Exams 04/08/23 08:27 Completed Pending at discharge Category Date Time Status BMP [Basic Metabolic Panel] AM LABS Lab 04/12/23 04:00 Ordered Blood Culture Stat Lab 04/08/23 10:20 Results CBC Auto Diff [Complete Blood Count w/Auto] AM LABS Lab 04/12/23 04:00 Ordered Radiology Impressions Chest X-Ray 04/10/23 08:30 IMPRESSION: Increased lung opacities compared to the previous examination. Laboratory Results WBC 5.4 10^3/uL (4.0-10.0) 04/11/23 13:40 RBC 3.29 10^6/uL (4.1-5.3) L 04/11/23 13:40 Hgb 10.5 g/dL (11.5-15.3) L 04/11/23 13:40 Hct 31.0 % (37.0-47.0) L 04/11/23 13:40 MCV 94.2 fl (81-99) 04/11/23 13:40 MCH 31.9 pg (28.0-34.0) 04/11/23 13:40 MCHC 33.9 g/dL (30.0-36.0) 04/11/23 13:40 RDW 11.9 % (12.1-15.1) L 04/11/23 13:40 Plt Count 434 10^3/cmm (130-400) H 04/11/23 13:40 MPV 9.1 fL (7.4-10.4) 04/11/23 13:40 Neut % (Auto) 56.7 % 04/11/23 13:40 Lymph % (Auto) 17.7 % 04/11/23 13:40 [place] % (Auto) 7.3 % 04/11/23 13:40 Eos % (Auto) 0.0 % 04/11/23 13:40 Baso % (Auto) 0.9 % 04/11/23 13:40 Neut # (Auto) 3.04 10^3/uL (1.8-7.7) 04/11/23 13:40 Lymph # (Auto) 1.0 10^3/uL (0.8-4.8) 04/11/23 13:40 [place] # (Auto) 0.4 10^3/uL (0.2-0.9) 04/11/23 13:40 Eos # (Auto) 0.0 10^3/uL (0.0-0.8) 04/11/23 13:40 Baso # (Auto) 0.1 10^3/uL (0.0-0.1) 04/11/23 13:40 Nucleated RBC % (auto) 0 % 04/11/23 13:40 Total Counted 100 (0-100) 04/10/23 05:40 Atypical Lymphs % 0.0 % (0-5) 04/10/23 05:40 Absolute Neutrophils 2.4 10^3/cmm (1.4-6.5) 04/10/23 05:40 Segmented Neutrophils 44 % 04/10/23 05:40 Abs Segm Neuts (Man) 2.3 10/cmm (1.6-7.1) 04/10/23 05:40 Band Neutrophils 2.0 % 04/10/23 05:40 Abs Band Neuts (Man) 0.1 10^3/cmm (0.0-1.2) 04/10/23 05:40 Absolute Lymphocytes 1.7 10^3/cmm (1.2-3.4) 04/10/23 05:40 Lymphocytes (Manual) 32 % 04/10/23 05:40 Monocytes (Manual) 3.0 % 04/10/23 05:40 Absolute Monocytes 0.2 10^3/cmm (0.1-0.6) 04/10/23 05:40 Eosinophils (Manual) 0 % 04/10/23 05:40 Absolute Eosinophils 0.0 10^3/cmm (0.0-0.7) 04/10/23 05:40 Basophils (Manual) 0.0 % 04/10/23 05:40 Absolute Basophils 0.0 10^3/cmm (0.0-0.2) 04/10/23 05:40 Metamyelocytes 4.0 % 04/10/23 05:40 Myelocytes 12.0 % 04/10/23 05:40 Promyelocytes 3.0 % 04/10/23 05:40 Nucleated RBCs 0.0 /100WBC (0-1) 04/10/23 05:40 Nucleated RBCs # 0.0 /100WBC 04/11/23 13:40 Blast Cells 0 % (0-0) 04/10/23 05:40 Platelet Estimate Normal (Normal) 04/10/23 05:40 Giant Platelets Trace 04/10/23 05:40 Macrocytosis 1+ H 04/10/23 05:40 Sodium 130 mmol/L (136-145) L 04/11/23 13:40 Potassium 4.6 mmol/L (3.5-5.1) 04/11/23 13:40 Chloride 94 mmol/L (98-107) L 04/11/23 13:40 Carbon Dioxide 21 mmol/L (22-29) L 04/11/23 13:40 Anion Gap 19.6 (5-19) H 04/11/23 13:40 BUN 3 mg/dL (6-20) L 04/11/23 13:40 Creatinine 0.4 mg/dL (0.5-0.9) L 04/11/23 13:40 GFR Calculation 188.7 mL/min (90-130) H 04/11/23 13:40 Glucose 124 mg/dL (65-115) H 04/11/23 13:40 Calculated Osmolality 268 mOsm/kg (285-295) L 04/11/23 13:40 Lactic Acid 1.7 mmol/L (0.5-2.2) 04/08/23 08:57 Calcium 8.9 mg/dL (8.5-10.5) 04/11/23 13:40 Total Bilirubin 0.2 mg/dL (0.15-1.2) 04/11/23 13:40 AST 35 U/L (0-32) H 04/11/23 13:40 ALT 25 U/L (0-33) 04/11/23 13:40 Alkaline Phosphatase 49 U/L (35-105) 04/11/23 13:40 NT-Pro-B Natriuret Pep 554 pg/mL (0-125) H 04/10/23 05:40 Total Protein 6.7 g/dL (6.6-8.7) 04/11/23 13:40 Albumin 3.4 g/dL (3.5-5.2) L 04/11/23 13:40 Globulin 3.3 g/dL (1.3-4.6) 04/11/23 13:40 TSH 1.68 uIU/mL (0.27-4.20) 04/08/23 08:57 Urine Color Dark yellow (Yellow) 04/08/23 13:36 Urine Appearance Clear (CLEAR) 04/08/23 13:36 Urine pH 6.5 (5-7) 04/08/23 13:36 Ur Specific [place] 1.015 (1.005-1.030) 04/08/23 13:36 Urine Protein Trace (Negative) 04/08/23 13:36 Urine Glucose (UA) Norm (Normal) 04/08/23 13:36 Urine Ketones 1+ (Negative) H 04/08/23 13:36 Urine Blood Neg (Negative) 04/08/23 13:36 Urine Nitrate Negative (Negative) 04/08/23 13:36 Urine Bilirubin 1+ (Negative) H 04/08/23 13:36 Prot Sulfosalicylic Acd Negative (Negative) 04/08/23 13:36 Urine Urobilinogen 1 mg/dL (Negative) H 04/08/23 13:36 Ur Leukocyte Esterase Negative (Negative) 04/08/23 13:36 Urine RBC None /hpf (0-2) 04/08/23 13:36 Urine WBC 0-4 /hpf (0-5) H 04/08/23 13:36 Ur Squamous Epith Cells 0-4 /hpf (0-5) H 04/08/23 13:36 Amorphous Sediment Trace /hpf 04/08/23 13:36 Urine Bacteria Trace /hpf (NONE) 04/08/23 13:36 Hyaline Casts Rare /lpf 04/08/23 13:36 Urine Mucus 1+ /hpf 04/08/23 13:36 C. pneumoniae DNA (PCR) Not detected (NOT DETECT) 04/08/23 11:12 Coronavirus 229E (PCR) Not detected (NOT DETECT) 04/10/23 10:30 Influenza Type A Ag negative (Negative) 04/08/23 09:12 Influenza Type B Ag negative (Negative) 04/08/23 09:12 M. pneumoniae (PCR) Detected (NOT DETECT) A 04/08/23 11:12 SARS-CoV-2 (PCR) Not detected (NOT DETECT) 04/10/23 10:30 Vitals Last Vital Signs Temp 98 F 04/12/23 03:17 Pulse 80 04/12/23 03:17 Resp 12 04/12/23 03:17 BP 110/67 04/12/23 03:17 Pulse Ox 95 04/12/23 03:17 O2 Del Method Room Air 04/12/23 03:14 O2 Flow Rate 0 04/11/23 08:00 Discharge Plan Discharge Patient Disposition: Home Condition: Stable Prescriptions: New prednisone 20 mg Tablet 40 mg PO DAILY Qty: 4 0RF amoxicillin-pot clavulanate 875-125 mg tablet 1 tab PO BID Qty: 10 0RF doxycycline hyclate 100 mg tablet 100 mg PO BID 5 Days Qty: 10 0RF Continued ibuprofen 200 mg tablet 200 mg PO Q12H PRN (Reason: pain) Qty: 60 5RF promethazine-DM 6.25-15 mg/5 mL syrup 5 ml PO Q6H PRN (Reason: cough) Qty: 240 5RF loperamide [Imodium A-D] 2 mg tablet 2 mg PO TID PRN (Reason: loose stool) Qty: 7 5RF diphenhydramine HCl [Benadryl] 25 mg capsule 25 mg PO BID PRN (Reason: allergy symptoms) Qty: 30 2RF acetaminophen 325 mg tablet 650 mg PO Q6H PRN (Reason: pain or fever) Qty: 30 2RF Rx Instructions: for pain or elevated temp > 101F Depo-Provera 150 mg/mL suspension 150 mg IM Q90D Qty: 1 2RF divalproex [Depakote ER] 250 mg tablet extended release 24 hr 250 mg PO .COMPLEX Qty: 90 2RF Rx Instructions: 1 tab (250mg) in the am at 08:00 and 2 tabs (500mg) at bedtime at 20:00 lorazepam [Ativan] 0.5 mg tablet 0.5 mg PO QID Qty: 120 2RF Rx Instructions: @08:00,12:00,16:00,20:00 lorazepam 1 mg Tablet 1 mg PO DAILY PRN (Reason: Agitation) clonidine HCl 0.1 mg tablet 0.1 mg PO TID@,,20 quetiapine [Seroquel] 300 mg tablet 300 mg PO BID@08,20 chlorpromazine 100 mg tablet 100 mg PO TID@,,20 sertraline [Zoloft] 100 mg tablet 200 mg PO DAILY@08 quetiapine [Seroquel] 200 mg tablet 200 mg PO BEDTIME@20 trazodone 100 mg tablet 300 mg PO BEDTIME@20 Florajen Acidophilus 20 billion cell capsule See Rx Instructions .ROUTE .COMPLEX Rx Instructions: take one capsule po daily@08 Benadryl Itch Stopping 1-0.1 % cream 1 applic topical TID PRN (Reason: itching) Colace 100 mg capsule 100 mg PO BID@08,20 Miralax 17 gram/dose powder 17 g PO DAILY@08 Rx Instructions: may hold if loose stool three day. lactulose 20 gram/30 mL solution 20 g PO BID PRN (Reason: if no bm x3 days) Rx Instructions: administer after 3 days no bowel movement Discharge Orders: Discharge Order (Routine); Ordered 04/12/23 Ordered By: Brandon Robles Referrals: Anayeli Carr, BRITTNY [Primary Care Provider] - 04/23/23 11:40 am (Consider chest x-ray 3 weeks, follow-up pneumonia CLINIC IS KEEPING THE APPOINTMENT PREVIOUSLY MADE FOR 04/23.) Discharge Diet: Usual diet Discharge Activity: Increase activity as tolerated Patient Instructions: Opioid Safety Activity Restrictions/Additional Instructions: Take all medicine as prescribed Follow-up with primary care provider 4 to 7 days Return for any increasing shortness of breath, fever Discharge Attestations Time Spent in Discharge Care*: greater than 30 min Quality Metrics Clinical Quality Measures [ No reported AMI, CVA or VTE this stay] Coding Level of Care Code 24221 Total time (in minutes) for Discharge: 38 Diagnoses Acute pneumonia J18.9 Hypoxia R09.02 Autistic disorder F84.0
[2023-04-12] MEDS: sertraline 100 mg Tablet 200 MG PO (08:44)
[2023-04-12 08:45] VITALS: BP 110/67
[2023-04-12] MEDS: cloNIDine 0.1 mg Tablet PO (08:45)
[2023-04-12] MEDS: quetiapine 300 mg Tablet PO (08:45)
[2023-04-12] MEDS: chlorPROMazine 50 mg Tablet 100 MG PO (08:45)
[2023-04-12] MEDS: LORazepam 0.5 mg Tablet PO (08:45)
[2023-04-12] MEDS: divalproex ER 250 mg Tablet (24H) PO (08:45)
[2023-04-12] MEDS: predniSONE 20 mg Tablet 40 MG PO (08:45)
== END 2023-04-12 11:00 | disposition home or self-care (01) | DRG 194 ==
LOC: ER 08:34 → MEDSURG 10:14
PROVIDERS: Admitting Provider Internal Medicine; Emergency Provider Family Medicine; PCP Nurse Practitioner; Visit Provider Internal Medicine
DX: J15.7 Pneumonia due to Mycoplasma pneumoniae (principal); E87.1 Hypo-osmolality and hyponatremia; F84.0 Autistic disorder; F33.9 Major depressive disorder, recurrent, unspecified; F34.9 Persistent mood [affective] disorder, unspecified; F71 Moderate intellectual disabilities; Z79.3 Long term (current) use of hormonal contraceptives; Z79.891 Long term (current) use of opiate analgesic; Z79.899 Other long term (current) drug therapy
CPT/HCPCS: 36415; 71045; 80048; 80053; 81001; 83605; 83880; 84443; 85007; 85025; 87040; 87502; 87635; 87641; 87804; 92523; 92526; 92610; 94640; 94668; 96365; 99285; J1100; J1940; J1956; J2185; J2405; J2543; J7030; J7512; J7626; Q0161

== ENCOUNTER → 2023-05-07 11:19 | Outpatient (BNVA) | payer MEDICAID, SELFPAY | PROVIDERS: PCP Nurse Practitioner; Visit Provider Nurse Practitioner | DX: J18.9 Pneumonia, unspecified organism (principal); B37.9 Candidiasis, unspecified | CPT/HCPCS: 71046; 80053; 85025 ==

== ENCOUNTER → 2023-10-10 10:20 | Outpatient (BNVA) | payer MEDICAID, SELFPAY | PROVIDERS: PCP Nurse Practitioner; Visit Provider Nurse Practitioner | DX: R73.9 Hyperglycemia, unspecified (principal); F34.9 Persistent mood [affective] disorder, unspecified | CPT/HCPCS: 80053; 83036; 85025 ==

== ENCOUNTER 2023-12-05 10:09 | Outpatient (CLI) | payer MEDICAID, SELFPAY ==
[2023-12-05 11:26] LABS: Chol HDL Ratio 2.56 mg/dL (0.0-4.40); Cholesterol 210 mg/dL (0-200); HDL Cholesterol 82 mg/dL (60-100); LDL Cholesterol Calculated 114 mg/dL (50-129); LDL HDL Ratio 1.39 RATIO (0.00-3.22); Triglycerides 68 mg/dL (0-150)
[2023-12-05 11:27] LABS: Valproic Acid Level 75.8 ug/mL (50-100)
[2023-12-05 11:34] LABS: Estmated Average Glucose 85; Hemoglobin A1C 4.6 % (4.0-6.0)
== END 2023-12-05 10:10 | disposition home or self-care (01) ==
LOC: LAB 10:09
PROVIDERS: PCP Nurse Practitioner; Visit Provider Nurse Practitioner
DX: Z79.899 Other long term (current) drug therapy (principal)
CPT/HCPCS: 36415; 80061; 80164; 83036

== ENCOUNTER → 2024-03-04 09:44 | Outpatient (BNVA) | payer MEDICAID, SELFPAY | PROVIDERS: PCP Nurse Practitioner; Visit Provider Nurse Practitioner | DX: Z79.899 Other long term (current) drug therapy (principal); J30.89 Other allergic rhinitis; K59.09 Other constipation; R52 Pain, unspecified; Z30.42 Encounter for surveillance of injectable contraceptive; Z13.6 Encounter for screening for cardiovascular disorders | CPT/HCPCS: 80053; 80061; 85025 ==

== ENCOUNTER → 2024-03-06 08:15 | Outpatient (BNVA) | payer MEDICAID, SELFPAY | PROVIDERS: PCP Nurse Practitioner; Visit Provider Nurse Practitioner | DX: Z13.6 Encounter for screening for cardiovascular disorders (principal); Z79.899 Other long term (current) drug therapy | CPT/HCPCS: 81000 ==

== ENCOUNTER 2024-10-21 08:31 | Emergency (ER) | payer MEDICAID, SELFPAY ==
[2024-10-21 08:46] VITALS: BP 104/67; PULSE 68; RESP 16; TEMP 36.8; O2SAT 99; BMI 25.6
--- NOTE | 2024-10-21 08:54 | XR_ITS ---
WS: [id number] XR foot LT 2V 21115 REASON FOR EXAM: PAIN, FALL FINDINGS: No acute fracture. Joint spaces of the forefoot, midfoot, and hindfoot are intact and well preserved. No soft tissue abnormality. XR/XR foot LT 2V 42000 IMPRESSION: No acute abnormality.
--- NOTE | 2024-10-21 08:54 | XR_ITS ---
WS: [email or web address] XR ankle LT 2V [id number] REASON FOR EXAM: PAIN, FALL FINDINGS: Soft tissue swelling over the lateral malleolus. There is a vertical fracture through the posterior lateral tibial metaphysis, minimally displaced. Th ere is mild widening of the ankle joint space medially. XR/XR ankle LT 2V [id number] IMPRESSION: Acute ankle fracture as above.
--- NOTE | 2024-10-21 09:34 | W.ED.EXTPRO ---
HPI - Extremity Problem General: Chief complaint: Extremity Injury, Lower Stated complaint: left ankle swollen Time Seen by Provider: 10/21/24 08:42 History of Present Illness: 29-year-old female history of autism cognitive delay presents emergency room left ankle swellings. She says that her feet malposition frequently she has a lot of falls she fell with her feet extended position this morning was noted of swelling and ecchymosis presents emergency room. Patient is noncommunicative so cannot contribute to history. Related Data Home Medications Medication Instructions Recorded Confirmed diphenhydramine-zinc acetate 1 1 applic topical TID PRN itching 04/08/23 10/21/24 %-0.1 % topical cream (Benadryl Itch Stopping) chlorpromazine 100 mg tablet 100 mg PO TID 10/21/24 10/21/24 quetiapine 200 mg tablet 200 mg PO QPM 10/21/24 10/21/24 quetiapine 300 mg tablet 300 mg PO BID 10/21/24 10/21/24 sertraline 100 mg tablet 200 mg PO DAILY 10/21/24 10/21/24 trazodone 100 mg tablet 300 mg PO QPM 10/21/24 10/21/24 Previous Rx's Medication Instructions Recorded diphenhydramine HCl 25 mg capsule 25 mg PO BID PRN allergy symptoms 03/04/24 (Benadryl) #30 caps lorazepam 1 mg tablet 1 mg PO DAILY PRN Agitation #30 08/20/24 tabs acetaminophen 325 mg tablet 650 mg (2 x 325 mg) PO Q6H PRN 08/27/24 pain or fever #30 tabs docusate sodium 100 mg capsule 100 mg PO BID@ #60 caps 08/27/24 (Colace) ibuprofen 200 mg tablet 200 mg PO Q12H PRN pain #60 tabs 08/27/24 lactulose 20 gram/30 mL oral 20 g (30 mL) PO BID PRN if no bm 08/27/24 solution x3 days #1,200 mL loperamide 2 mg tablet (Imodium 2 mg PO TID PRN loose stool #7 tabs 08/27/24 A-D) medroxyprogesterone 150 mg/mL 150 mg IM Q90D #1 mL 08/27/24 intramuscular suspension (Depo-Provera) polyethylene glycol 3350 17 17 g PO DAILY@08 constipation #510 08/27/24 gram/dose oral powder (Miralax) grams topiramate 50 mg tablet (Topamax) 50 mg PO BID #60 tabs 09/15/24 clonidine HCl 0.1 mg tablet 0.1 mg PO TID@08,14,20 #90 tabs 09/24/24 divalproex 250 mg tablet,extended 250 mg PO DAILY #30 tabs 09/24/24 release 24 hr divalproex 500 mg tablet,extended 500 mg PO .HS #30 tabs 09/24/24 release 24 hr (Depakote ER) lorazepam 0.5 mg tablet (Ativan) 0.5 mg PO QID anxiety #120 tabs 09/24/24 hydrocodone 5 mg-acetaminophen 325 1 tab PO Q6H PRN pain #10 tabs 10/21/24 mg tablet Allergies Allergy/AdvReac Type Severity Reaction Status Date / Time grape Allergy Mild ALGY-Rash Verified 09/15/24 12:15 Review of Systems General: Reports: ROS unobtainable due to mental status PFSH ED PFSH: Medical History Acute bacterial conjunctivitis of left eye Psychiatric care Persistent mood [affective] disorder, unspecified On combination antipsychotic drug therapy On valproic acid therapy Depo-Provera contraceptive status Environmental and seasonal allergies On combination antipsychotic drug therapy Major depressive disorder, recurrent, unspecified Moderate intellectual disabilities Autistic disorder Surgical History No history of previous surgery Family History Other Cancer Social History Smoking and tobacco/nicotine status: unknown if used tobacco/nicotine Second hand smoke exposure: No Alcohol intake: never Substance/Drug Use: never Adopted: No Caregiver/support person: Yes Lives independently: No Household members: other Housing: House Marital status: Single Number of children: 0 service: No Current occupational status: disabled Current occupational exposures/hazards: No Pets and animals: No Sexually active: No Do you think of yourself as: Straight/Heterosexual Current gender identity: Female Special maik needs: No Physical Exam Extremity: OTHER: Examination left foot ecchymosis inferior to the medial and lateral malleolus is dorsalis pedis and posterior tibialis pulses are normal capillary reflex normal no obvious deformities. Course Vital Signs: Vital signs: Vital Signs Temperature 98.3 F 10/21/24 08:46 Pulse Rate 68 10/21/24 08:46 Respiratory Rate 16 10/21/24 08:46 Blood Pressure 104/67 10/21/24 08:46 Pulse Oximetry 99 10/21/24 08:46 Oxygen Delivery Me thod Room Air 10/21/24 08:46 MDM - Extremity (Nontraumatic) Medical Decision Making X-ray shows posterior portion of the tibia fracture is consistent with a hyperextension injury as she fell on her feet. Patient placed in a heavy posterior splint and clamshells with an anterior portion. She tends to sit with her feet extended at all times for staff was concerned about whether or not she would be able to stay in the splint properly. We used 3 layers of OCL to reinforce this and then put a single layer in front to make it more of a clamshell to ensure that patient would keep foot in the proper position. Referred to podiatry. Medical Records I reviewed the patient's medical records. Lab Data I reviewed the patient's lab results. Radiology Impressions Ankle X-Ray 10/21/24 08:54 IMPRESSION: Acute ankle fracture as above. Foot X-Ray 10/21/24 08:54 IMPRESSION: No acute abnormality. All radiology interpretation(s) finalized by discharge Discharge Plan Discharge Patient Disposition: Home Clinical Impression: Fracture of distal end of left tibia, Autistic disorder Condition: Stable Prescriptions: New hydrocodone-acetaminophen 5-325 mg tablet 1 tab PO Q6H PRN (Reason: pain) Qty: 10 0RF No Action diphenhydramine HCl [Benadryl] 25 mg capsule 25 mg PO BID PRN (Reason: allergy symptoms) Qty: 30 2RF acetaminophen 325 mg tablet 650 mg PO Q6H PRN (Reason: pain or fever) Qty: 30 2RF Rx Instructions: for pain or elevated temp > 101F Colace 100 mg capsule 100 mg PO BID@08,20 Qty: 60 2RF ibuprofen 200 mg tablet 200 mg PO Q12H PRN (Reason: pain) Qty: 60 5RF lactulose 20 gram/30 mL solution 20 g PO BID PRN (Reason: if no bm x3 days) Qty: 1200 0RF Rx Instructions: administer after 3 days no bowel movement loperamide [Imodium A-D] 2 mg tablet 2 mg PO TID PRN (Reason: loose stool) Qty: 7 0RF Depo-Provera 150 mg/mL suspension 150 mg IM Q90D Qty: 1 2RF Miralax 17 gram/dose powder 17 g PO DAILY@08 Qty: 510 5RF Rx Instructions: may hold if loose stool three day. topiramate [Topamax] 50 mg tablet 50 mg PO BID Qty: 60 2RF lorazepam 1 mg tablet 1 mg PO DAILY PRN (Reason: Agitation) Qty: 30 2RF clonidine HCl 0.1 mg tablet 0.1 mg PO TID@08,14,20 Qty: 90 2RF divalproex 250 mg tablet extended release 24 hr 250 mg PO DAILY Qty: 30 2RF Rx Instructions: in the am divalproex [Depakote ER] 500 mg tablet extended release 24 hr 500 mg PO .HS Qty: 30 2RF Rx Instructions: at bedtime lorazepam [Ativan] 0.5 mg tablet 0.5 mg PO QID Qty: 120 2RF Rx Instructions: @08:00,12:00,16:00,20:00 Benadryl Itch Stopping 1-0.1 % cream 1 applic topical TID PRN (Reason: itching) quetiapine 300 mg tablet 300 mg PO BID Rx Instructions: TAKE ONE TABLET BY MOUTH TWICE DAILY AT 8am AND 8pm chlorpromazine 100 mg tablet 100 mg PO TID Rx Instructions: TAKE ONE TABLET BY MOUTH THREE TIMES DAILY (8AM,2PM,8PM) sertraline 100 mg tablet 200 mg PO DAILY Rx Instructions: TAKE TWO TABLETS (200mg) BY MOUTH EVERY DAY AT 8am quetiapine 200 mg tablet 200 mg PO QPM Rx Instructions: TAKE ONE TABLET BY MOUTH EVERY NIGHT AT BEDTIME AT 8pm trazodone 100 mg tablet 300 mg PO QPM Rx Instructions: TAKE THREE TABLETS BY MOUTH EVERY NIGHT AT BEDTIME AT 8PM Discharge Orders: Discharge ED (Routine); Ordered 10/21/24 Ordered By: Omid Gray Other Ambulatory Orders: DME: Wheelchair (Order) Location: None Selected Ordered By: Omid Gray Referrals: Anayeli Carr, OCEANOLOGY TEACHER-C [Primary Care Provider] - Discharge Diet: Usual diet Discharge Activity: Limit activity as instructed Patient Instructions: Opioid Safety, Pain Management Activity Restrictions/Additional Instructions: Thank you for choosing [facility] for your healthcare needs today. It is very important that you follow up as instructed or that you return to the Emergency Department should you have concerns or if your condition changes or worsens in any way. You are seen in the emergency room as ankle pain. There is a left ankle fracture. You should leave the splint in place until you follow-up with podiatry. You can use the pain medications as prescribed elevating the foot will help with pain control. Coding Level of Care Code ED Preparation Plant Repairer for Trevor Ulloa
--- NOTE | 2024-10-21 09:53 | DCPLANNER ---
Message sent to podiatry for LT ankle FX
== END 2024-10-21 10:11 | disposition home or self-care (01) ==
PROVIDERS: Emergency Provider Family Medicine; PCP Nurse Practitioner
DX: S82.302A Unspecified fracture of lower end of left tibia, initial encounter for closed fracture (principal); F84.0 Autistic disorder; W19.XXXA Unspecified fall, initial encounter
CPT/HCPCS: 73600; 73620; 99283

== ENCOUNTER → 2024-11-03 11:05 | Outpatient (BNVA) | payer MEDICAID, SELFPAY | PROVIDERS: PCP Nurse Practitioner; Visit Provider Podiatrist Foot & Ankle Surgery | DX: M25.572 Pain in left ankle and joints of left foot (principal); S82.302A Unspecified fracture of lower end of left tibia, initial encounter for closed fracture; L89.521 Pressure ulcer of left ankle, stage 1; L89.621 Pressure ulcer of left heel, stage 1; W19.XXXA Unspecified fall, initial encounter | CPT/HCPCS: 29515; 73610; 99204 ==

== ENCOUNTER → 2024-11-10 08:59 | Outpatient (BNVA) | payer MEDICAID, SELFPAY | PROVIDERS: PCP Nurse Practitioner; Visit Provider Thoracic Surgery (Cardiothoracic Vascular Surgery) | DX: I96 Gangrene, not elsewhere classified (principal); L89.892 Pressure ulcer of other site, stage 2; L89.620 Pressure ulcer of left heel, unstageable | CPT/HCPCS: 97597; 99213; A6212 ==

== ENCOUNTER → 2024-11-17 10:01 | Outpatient (BNVA) | payer MEDICAID, SELFPAY | PROVIDERS: PCP Nurse Practitioner; Visit Provider Podiatrist Foot & Ankle Surgery | DX: S82.302A Unspecified fracture of lower end of left tibia, initial encounter for closed fracture (principal); L89.622 Pressure ulcer of left heel, stage 2; X58.XXXA Exposure to other specified factors, initial encounter | CPT/HCPCS: 73610; 97597; 99213 ==

== ENCOUNTER → 2024-11-24 08:45 | Outpatient (BNVA) | payer MEDICAID, SELFPAY | PROVIDERS: PCP Nurse Practitioner; Visit Provider Thoracic Surgery (Cardiothoracic Vascular Surgery) | DX: I96 Gangrene, not elsewhere classified (principal); L89.892 Pressure ulcer of other site, stage 2; L89.890 Pressure ulcer of other site, unstageable ==

== ENCOUNTER → 2024-12-01 11:04 | Outpatient (BNVA) | payer MEDICAID, SELFPAY | PROVIDERS: PCP Nurse Practitioner; Visit Provider Podiatrist Foot & Ankle Surgery | DX: S82.302A Unspecified fracture of lower end of left tibia, initial encounter for closed fracture (principal); X58.XXXA Exposure to other specified factors, initial encounter; F33.9 Major depressive disorder, recurrent, unspecified; Z79.899 Other long term (current) drug therapy; I96 Gangrene, not elsewhere classified; L89.892 Pressure ulcer of other site, stage 2; L89.620 Pressure ulcer of left heel, unstageable | CPT/HCPCS: 11042; 36415; 73610; 80061; 80164; 83036; 99213 ==

== ENCOUNTER → 2024-12-08 09:50 | Outpatient (BNVA) | payer MEDICAID, SELFPAY | PROVIDERS: PCP Nurse Practitioner; Visit Provider Thoracic Surgery (Cardiothoracic Vascular Surgery) | DX: I96 Gangrene, not elsewhere classified (principal); L89.892 Pressure ulcer of other site, stage 2; L89.620 Pressure ulcer of left heel, unstageable | CPT/HCPCS: 11042; 97597 ==

== ENCOUNTER → 2024-12-15 09:16 | Outpatient (BNVA) | payer MEDICAID, SELFPAY | PROVIDERS: PCP Nurse Practitioner; Visit Provider Thoracic Surgery (Cardiothoracic Vascular Surgery) | DX: I96 Gangrene, not elsewhere classified (principal); L89.892 Pressure ulcer of other site, stage 2; L89.620 Pressure ulcer of left heel, unstageable | CPT/HCPCS: 11042; 97597 ==

== ENCOUNTER 2024-12-18 10:38 | Outpatient (CLI) | payer MEDICAID, SELFPAY ==
--- NOTE | 2024-12-18 10:42 | XR_ITS ---
WS: [id number] KUB, AP view, 12/18/2024 Clinical Data: K59.09 - Other constipation Comparison: KUB, 02/28/2023 Findings: No abnormal intraabdominal masses or calcifications are seen. There is no dilatated small bowel or evidence of obstruction. There is air throughout the colon. There is minimal small bowel air. XR/XR abdomen 1V* 10144 Impression: Moderate colonic ileus.
== END 2024-12-18 10:39 | disposition home or self-care (01) ==
LOC: RAD 10:40
PROVIDERS: PCP Nurse Practitioner; Visit Provider Nurse Practitioner
DX: K59.09 Other constipation (principal); K56.7 Ileus, unspecified
CPT/HCPCS: 74018

== ENCOUNTER → 2024-12-22 09:54 | Outpatient (BNVA) | payer MEDICAID, SELFPAY | PROVIDERS: PCP Nurse Practitioner; Visit Provider Thoracic Surgery (Cardiothoracic Vascular Surgery) | DX: I96 Gangrene, not elsewhere classified (principal); L89.892 Pressure ulcer of other site, stage 2; L89.620 Pressure ulcer of left heel, unstageable | CPT/HCPCS: 11042; A6197; A6210 ==

== ENCOUNTER → 2024-12-29 09:55 | Outpatient (BNVA) | payer MEDICAID, SELFPAY | PROVIDERS: PCP Nurse Practitioner; Visit Provider Thoracic Surgery (Cardiothoracic Vascular Surgery) | DX: I96 Gangrene, not elsewhere classified (principal); L89.892 Pressure ulcer of other site, stage 2; L89.620 Pressure ulcer of left heel, unstageable | CPT/HCPCS: 11042; 97597; A6210; A6248 ==

== ENCOUNTER → 2025-01-05 10:01 | Outpatient (BNVA) | payer MEDICAID, SELFPAY | PROVIDERS: PCP Nurse Practitioner; Visit Provider Thoracic Surgery (Cardiothoracic Vascular Surgery) | DX: I96 Gangrene, not elsewhere classified (principal); L89.892 Pressure ulcer of other site, stage 2; L89.620 Pressure ulcer of left heel, unstageable | CPT/HCPCS: 11042; 97597; A6210; A6248 ==

== ENCOUNTER → 2025-01-12 10:30 | Outpatient (BNVA) | payer MEDICAID, SELFPAY | PROVIDERS: PCP Nurse Practitioner; Visit Provider Thoracic Surgery (Cardiothoracic Vascular Surgery) | DX: I96 Gangrene, not elsewhere classified (principal); L89.892 Pressure ulcer of other site, stage 2; L89.620 Pressure ulcer of left heel, unstageable | CPT/HCPCS: 11042; 97597; A6210; A6248 ==

== ENCOUNTER → 2025-01-19 10:09 | Outpatient (BNVA) | payer MEDICAID, SELFPAY | PROVIDERS: PCP Nurse Practitioner | DX: I96 Gangrene, not elsewhere classified (principal); L89.892 Pressure ulcer of other site, stage 2; L89.620 Pressure ulcer of left heel, unstageable | CPT/HCPCS: 97597; A6210; A6248 ==

== ENCOUNTER 2025-01-22 11:07 | Emergency (ER) | payer MEDICAID, SELFPAY ==
[2025-01-22 11:09] VITALS: BP 109/78; PULSE 109; RESP 20; TEMP 36.4; O2SAT 96; BMI 23.3
--- NOTE | 2025-01-22 11:19 | PC.NURSE ---
Suicide assessment not done due to patient being non-verbal with autism.
--- NOTE | 2025-01-22 11:27 | ED_ITS ---
HPI - General Adult 2 General: Chief complaint: General Medical Stated complaint: extreme agitation (nonverbal autism) Time Seen by Provider: 01/22/25 11:15 History of Present Illness: 29-year-old female with a history of aut ism who presents emergency room with 2 weeks of worsening agitation. Concern for UTI. She has decreased ambulation, staying in bed and requiring multiple staff members to get her out of bed. When I enter the room she is thrashing about in the bed. However she does communicate nonverbally with sign language with caregivers. Caregivers tell me she has not been eating. They report weight loss. They also report dark urine. Related Data Home Medications ?Medication ?Instructions ?Recorded ?Confirmed diphenhydramine-zinc acetate 1 1 applic topical TID HI N itching 04/08/23 01/22/25 %-0.1 % topical cream (Benadryl Itch Stopping) hydrocodone 5 mg-acetaminophen 325 1 tab PO Q6H PRN pa in 01/22/25 01/22/25 mg tablet Previous Rx's ?Medication ?Instructions ?Recorded diphenhydramine HCl 25 mg capsule 25 mg PO BID PRN all ergy symptoms 03/04/24 (Benadryl) #30 caps lorazepam 1 mg tablet 1 mg PO DAILY PRN Agitation #30 08/20/24 tabs ibuprofen 200 mg tablet 200 mg PO Q12H PRN pain #60 tabs 08/27/24 loperamide 2 mg tablet (Imodium 2 mg PO TID PRN loose stool #7 tabs 08/27/24 A-D) medroxyprogesterone 150 mg/mL 150 mg IM Q90D #1 mL intramuscular suspension (Depo-Provera) polyethylene glycol 3350 17 17 g PO DAILY@08 constipat ion #510 08/27/24 gram/dose oral powder (Miralax) grams clonidine HCl 0.1 mg tablet 0.1 mg PO TID@08,,20 #90 tabs 09/24/24 chlorpromazine 100 mg tablet 100 mg PO TID #90 tabs divalproex 250 mg tablet,extended 250 mg PO DAILY #30 tabs 10/26/24 release 24 hr divalproex 500 mg tablet,extended 500 mg PO .HS #30 ta bs 10/26/24 release 24 hr (Depakote ER) lorazepam 0.5 mg tablet (Ativan) 0.5 mg PO QID anxiety #120 tabs 10/26/24 quetiapine 200 mg tablet 200 mg PO QPM #30 tabs 10/26 quetiapine 300 mg tablet 300 mg PO BID #60 tabs 10/26 neomycin-bacitracn Zn-polymyx 3.5 1 applic topical ISMAEL LY #1,022.4 11/03/24 mg-400 unit-5,000 unit/gram top grams oint (Triple Antibiotic) docusate sodium 100 mg capsule 100 mg PO BID@,20 #60 caps 11/09/24 (Colace) topiramate 50 mg tablet See Rx Instructions PO .COMP SHANICE 11/09/24 #90 tabs acetaminophen 325 mg tablet 650 mg (2 x 325 mg) PO Q6H PRN 11/15/24 pain or fever #30 tabs sertraline 100 mg tablet 200 mg (2 x 100 mg) PO DAILY #30 11/30/24 tabs Lactobacillus acidophilus 20 20,000 mmu cells PO DAILY #30 caps 12/23/24 billion cell capsule (Florajen Acidophilus) naloxone 4 mg/actuation nasal 4 mg intranasal Q2M PRN opioid 12/23/24 spray (Narcan) overdose #2 ea trazodone 100 mg tablet 300 mg (3 x 100 mg) PO QPM # 30 tabs 12/30/24 Allergies Allergy/AdvReac Type Severity Reaction Status Date / Time grape Allergy Mild ALGY-Rash Verified 12/01/24 11:17 Review of Systems 2 General: Reports: 10 or more systems reviewed and unremarkable except in HPI and below PFSH ED 2 PFSH: Medical History Acute bacterial conjunctivitis of left eye Psychiatric care Persistent mood [affective] disorder, unspecified On combination antipsychotic drug therapy On valproic acid therapy Depo-Provera contraceptive status Environmental and seasonal allergies On combination antipsychotic drug therapy Major depressive disorder, recurrent, unspecified Moderate intellectual disabilities Autistic disorder Surgical History No history of previous surgery Family History Other Cancer Social History Smoking and tobacco/nicotine status: never used tobacco/nicotine Second hand smoke exposure: No Alcohol intake: never Substance/Drug Use: never Adopted: No Caregiver/support person: Yes Lives independently: No Household members: other Housing: House Marital status: Single Number of children: 0 service: No Current occupational status: disabled Current occupational exposures/hazards: No Pets and animals: No Sexually active: No Do you think of yourself as: Straight/Heterosexual Current gender identity: Female Special maik needs: No Physical Exam 2 Narrative: EXAM NARRATIVE: General: Alert, no acute distress. Skin: Warm, dry. Head: Normocephalic, atraumatic. Neck: Supple, trachea midline. Eye: Extraocular movements are intact. Ears, nose, mouth and throat: mucosa moist. Cardiovascular: Regular, Normal peripheral perfusion. Respiratory: Lungs are clear to auscultation, respirations are non-labored, breath sounds are equal, Symmetrical chest wall expansion. Gastrointestinal: Soft, Nontender, Non distended Musculoskeletal: Normal ROM, no deformity. Neurological: Alert. No focal neurological deficit observed. Psychiatric: Unable to assess fully. Patient has autism. Course 2 Vital Signs: Vital signs: Vital Signs Temperature 97.6 F 01/22/25 11:09 Pulse Rate 109 H 01/22/25 11:09 Respiratory Rate 20 H 01/22/25 11:09 Blood Pressure 109/78 01/22/25 11:09 Pulse Oximetry 96 01/22/25 11:09 Oxygen Delivery Me thod Room Air 01/22/25 11:09 [facility] - General Adult Medical Decision Making Medical decision making: Differential diagnosis including but not limited to and based on the above HPI, review of systems and physical exam: In this patient with altered mental status: Stroke. Hypoglycemia. Metabolic encephalopathy. Infections such as pneumonia, urinary tract infection, Covid-19, Influenza. Electrolyte abnormalities such as hypernatremia. Renal failure / uremia. Hepatic encephalopathy. Hypoxemia. Hypercapnic respiratory failure. Psychosis. Drug or alcohol intoxication. Medication overdose. Orders placed to evaluate differential diagnosis based on the above differential, HPI and physical exam Lab Review: Laboratory results were reviewed and interpreted by myself the emergency room physician. No leukocytosis. No anemia. No renal failure. No signs of infection. No urinary tract infection although she does look dehydrated with a concentrated urine. No flu COVID or RSV. Have no findings to explain the patient's behavioral changes. I reviewed the patient's medical record. Reexamination: Patient remained stable. No increased work of breathing. No altered mental status. No focal motor deficits. Assessment and plan: Autism Dehydration ? Normal saline bolus in the emergency room. - Discharged home - Discussed plan with patient. Answered any questions. - Evaluation and treatment of this problem were appropriate in the emergency setting. Lab Data 01/22/25 12:04 01/22/25 12:04 Laboratory Results WBC 6.39 10^3/uL (3.29-11.43) 01/22/25 12:04 RBC 4.09 10^6/uL (3.85-5.65) 01/22/25 12:04 Hgb 12.90 g/dL (11.27-16.99) 01/22/25 12:04 Hct 40.8 % (36-47) 01/22/25 12:04 MCV 99.8 fl (85-98) H 01/22/25 12:04 MCH 31.5 pg (27-33) 01/22/25 12:04 MCHC 31.6 g/dL (30-55) 01/22/25 12:04 RDW 11.6 % (12.1-15.1) L 01/22/25 12:04 Plt Count 210 10^3/cmm (157-399) 01/22/25 12:04 MPV 10.9 fL (7.4-10.4) H 01/22/25 12:04 Neut % (Auto) 58.6 % 01/22/25 12:04 Lymph % (Auto) 32.6 % 01/22/25 12:04 [place] % (Auto) 8.1 % 01/22/25 12:04 Eos % (Auto) 0.0 % 01/22/25 12:04 Baso % (Auto) 0.5 % 01/22/25 12:04 Neut # (Auto) 3.75 10^3/uL (1.8-7.7) 01/22/25 12:04 Lymph # (Auto) 2.1 10^3/uL (0.8-4.8) 01/22/25 12:04 [place] # (Auto) 0.5 10^3/uL (0.2-0.9) 01/22/25 12:04 Eos # (Auto) 0.0 10^3/uL (0.0-0.8) 01/22/25 12:04 Baso # (Auto) 0.0 10^3/uL (0.0-0.1) 01/22/25 12:04 Nucleated RBC % (auto) 0 % 01/22/25 12:04 Nucleated RBCs # 0.0 /100WBC 01/22/25 12:04 Sodium 141 mmol/L (136-145) 01/22/25 12:04 Potassium 3.9 mmol/L (3.5-5.1) 01/22/25 12:04 Chloride 107 mmol/L (98-107) 01/22/25 12:04 Carbon Dioxide 18 mmol/L (22-29) L 01/22/25 12:04 Anion Gap 19.9 (5-19) H 01/22/25 12:04 BUN 10 mg/dL (6-20) 01/22/25 12:04 Creatinine 0.8 mg/dL (0.5-0.9) 01/22/25 12:04 GFR Calculation 83.7 mL/min (90-130) L 01/22/25 12:04 Glucose 95 mg/dL (65-115) 01/22/25 12:04 Calculated Osmolality 291 mOsm/kg (285-295) 01/22/25 12:04 Lactic Acid 2.1 mmol/L (0.5-2.2) 01/22/25 12:04 Calcium 9.3 mg/dL (8.5-10.5) 01/22/25 12:04 Total Bilirubin 0.3 mg/dL (0.15-1.2) 01/22/25 12:04 AST 12 U/L (0-32) 01/22/25 12:04 ALT 7 U/L (0-33) 01/22/25 12:04 Alkaline Phosphatase 64 U/L (35-105) 01/22/25 12:04 C-Reactive Protein 5.2 mg/L (0.0-4.9) H 01/22/25 12:04 Total Protein 7.4 g/dL (6.6-8.7) 01/22/25 12:04 Albumin 4.5 g/dL (3.5-5.2) 01/22/25 12:04 Globulin 2.9 g/dL (1.3-4.6) 01/22/25 12:04 Lipase 16 U/L (13-60) 01/22/25 12:04 Urine Color Dark yellow (Yellow) A 01/22/25 12:20 Urine Appearance Clear (CLEAR) 01/22/25 12:20 Urine pH 6.5 (5-7) 01/22/25 12:20 Ur Specific [place] 1.026 (1.005-1.030) 01/22/25 12:20 Urine Protein 1+ (Negative) A 01/22/25 12:20 Urine Glucose (UA) Negative (Normal) 01/22/25 12:20 Urine Ketones 1+ (Negative) H 01/22/25 12:20 Urine Blood Negative (Negative) 01/22/25 12:20 Urine Nitrate Negative (Negative) 01/22/25 12:20 Urine Bilirubin 1+ (Negative) H 01/22/25 12:20 Urine Urobilinogen 1.0 mg/dL (Negative) 01/22/25 12:20 Ur Leukocyte Esterase Trace (Negative) A 01/22/25 12:20 Urine RBC 0-2 /hpf (0-2) 01/22/25 12:20 Urine WBC 0-5 /hpf (0-5) 01/22/25 12:20 Ur Squamous Epith Cells 6-10 /hpf (0-5) 01/22/25 12:20 Amorphous Sediment Not Reportable 01/22/25 12:20 Urine Bacteria None seen /hpf (NONE) 01/22/25 12:20 Hyaline Casts 9.91 /lpf 01/22/25 12:20 Urine Mucus Trace /hpf 01/22/25 12:20 Influenza A (PCR) Negative (Negative) 01/22/25 12:07 Influenza Type B (PCR) Negative (Negative) 01/22/25 12:07 RSV (PCR) Negative (Negative) 01/22/25 12:07 SARS-CoV-2 (PCR) Negative (Negative) 01/22/25 12:07 No radiology studies performed this visit Discharge Plan Discharge Patient Disposition: Home Clinical Impression: Autistic disorder, Dehydration Condition: Stable Prescriptions: No Action Colace 100 mg capsule 100 mg PO BID@08,20 Qty: 60 2RF topiramate 50 mg tablet See Rx Instructions PO .COMPLEX Qty: 90 2RF Rx Instructions: 50 mg 8AM and 100mg 8PM orally; diphenhydramine HCl [Benadryl] 25 mg capsule 25 mg PO BID PRN (Reason: allergy symptoms) Qty: 30 2RF ibuprofen 200 mg tablet 200 mg PO Q12H PRN (Reason: pain) Qty: 60 5RF loperamide [Imodium A-D] 2 mg tablet 2 mg PO TID PRN (Reason: loose stool) Qty: 7 0RF Depo-Provera 150 mg/mL suspension 150 mg IM Q90D Qty: 1 2RF Miralax 17 gram/dose powder 17 g PO DAILY@08 Qty: 510 5RF Rx Instructions: may hold if loose stool three day. chlorpromazine 100 mg tablet 100 mg PO TID Qty: 90 4RF Rx Instructions: TAKE ONE TABLET BY MOUTH THREE TIMES DAILY (8AM,2PM,8PM) quetiapine 200 mg tablet 200 mg PO QPM Qty: 30 4RF Rx Instructions: TAKE ONE TABLET BY MOUTH EVERY NIGHT AT BEDTIME AT 8pm quetiapine 300 mg tablet 300 mg PO BID Qty: 60 4RF Rx Instructions: TAKE ONE TABLET BY MOUTH TWICE DAILY AT 8am AND 8pm lorazepam [Ativan] 0.5 mg tablet 0.5 mg PO QID Qty: 120 4RF Rx Instructions: @08:00,12:00,16:00,20:00 divalproex 250 mg tablet extended release 24 hr 250 mg PO DAILY Qty: 30 4RF Rx Instructions: in the am divalproex [Depakote ER] 500 mg tablet extended release 24 hr 500 mg PO .HS Qty: 30 4RF Rx Instructions: at bedtime Triple Antibiotic 3.5mg-400 unit- 5,000 unit/gram ointment 1 applic topical DAILY Qty: 1022.4 0RF naloxone [Narcan] 4 mg/actuation spray,non-aerosol 4 mg intranasal Q2M PRN (Reason: opioid overdose) Qty: 2 0RF Rx Instructions: spray 1 dose into ONE nostril; alternate nostrils w each dose until help arrives lorazepam 1 mg tablet 1 mg PO DAILY PRN (Reason: Agitation) Qty: 30 2RF clonidine HCl 0.1 mg tablet 0.1 mg PO TID@08,14,20 Qty: 90 2RF acetaminophen 325 mg tablet 650 mg PO Q6H PRN (Reason: pain or fever) Qty: 30 2RF Rx Instructions: for pain or elevated temp > 101F sertraline 100 mg tablet 200 mg PO DAILY Qty: 30 3RF Rx Instructions: TAKE TWO TABLETS (200mg) BY MOUTH EVERY DAY AT 8am Florajen Acidophilus 20 billion cell capsule 20,000 mmu cells PO DAILY Qty: 30 5RF trazodone 100 mg tablet 300 mg PO QPM Qty: 30 4RF Rx Instructions: TAKE THREE TABLETS BY MOUTH EVERY NIGHT AT BEDTIME AT 8PM Benadryl Itch Stopping 1-0.1 % cream 1 applic topical TID PRN (Reason: itching) hydrocodone-acetaminophen 5-325 mg tablet 1 tab PO Q6H PRN (Reason: pain) Rx Instructions: 1 tab po prn with wound debridement at wound clinic visits Discharge Orders: Discharge ED (Routine); Ordered 01/22/25 Ordered By: Mireya Castillo Referrals: Anayeli Carr, [employer] [Primary Care Provider] - Discharge Diet: Usual diet Discharge Activity: Increase activity as tolerated Patient Instructions: Opioid Safety, Pain Management Activity Restrictions/Additional Instructions: Thank you for choosing [facility] for your healthcare needs today. Please realize this is an emergency room and that we are providing you with a medical screening exam and this may not be complete and all inclusive of all the testing and or work up that you may need to determine your ailment or severity of your illness. You have been screened and evaluated and felt safe for discharge. Health conditions do change or evolve sometimes and as such it is important that you follow up with your Primary Doctor to be re checked, 3-5 days is a general good time frame for follow up. You are always welcome to return to the ED for re assessment if your symptoms are worsening or you have new concerns Print Language: Georgian Coding Level of Care Code ED Laser Operator for Trevor Ulloa
[2025-01-22 12:14] LABS: Basophils % 0.5 %; Hematocrit 40.8 % (36-47); Lymphocytes # 2.1 10^3/uL (0.8-4.8); Lymphocytes % 32.6 %; Mean Corpuscular HGB Conc 31.6 g/dL (30-55); Mean Corpuscular Hemoglobin 31.5 pg (27-33); Mean Corpuscular Volume 99.8 fl (85-98); Mean Platelet Volume 10.9 fL (7.4-10.4); Monocytes # 0.5 10^3/uL (0.2-0.9); Monocytes % 8.1 %; Neutrophils # 3.75 10^3/uL (1.8-7.7); Neutrophils % 58.6 %; Nucleated Red Blood Cells % 0 %; Platelet Count 210 10^3/cmm (157-399); Red Blood Count 4.09 10^6/uL (3.85-5.65); Red Cell Distribution Width 11.6 % (12.1-15.1); White Blood Count 6.39 10^3/uL (3.29-11.43)
[2025-01-22] MEDS: sodium chloride 0.9% 1,000 ML 999 ML IV (12:29)
[2025-01-22 12:31] LABS: Lactic Sepsis W/Reflex 2.1 mmol/L (0.5-2.2)
[2025-01-22 12:32] LABS: Alanine Aminotransferase 7 U/L (0-33); Albumin Level 4.5 g/dL (3.5-5.2); Alkaline Phosphatase 64 U/L (35-105); Anion Gap 19.9 (5-19); Aspartate Amino Transferase 12 U/L (0-32); Blood Urea Nitrogen 10 mg/dL (6-20); C Reactive Protein 5.2 mg/L (0.0-4.9); Calcium 9.3 mg/dL (8.5-10.5); Carbon Dioxide 18 mmol/L (22-29); Chloride 107 mmol/L (98-107); Creatinine Clr Calc Pharmacy 95.9275; Globulin 2.9 g/dL (1.3-4.6); Glomerular Filtration Rate 83.7 mL/min (90-130); Glucose 95 mg/dL (65-115); Lipase 16 U/L (13-60); Osmolality Calculated 291 mOsm/kg (285-295); Potassium 3.9 mmol/L (3.5-5.1); Sodium 141 mmol/L (136-145); Total Bilirubin 0.3 mg/dL (0.15-1.2); Total Protein 7.4 g/dL (6.6-8.7)
--- NOTE | 2025-01-22 12:36 | PC.NURSE ---
PATIENT WILL NOT TOLERATE VITAL SIGNS AT THIS TIME.
[2025-01-22 12:55] LABS: Influenza A NEGATIVE (Negative); Influenza B NEGATIVE (Negative); Respiratory Syncytial Virus Ce NEGATIVE (Negative); SARS-CoV-2 PCR NEGATIVE (Negative)
[2025-01-22 12:57] LABS: Reflex Lactate Order REFLEX LACTIC ORDERD
[2025-01-22 13:23] LABS: Bilirubin Urine 1+ (Negative); Blood Urine Negative (Negative); Glucose Urine UA Negative (Normal); Ketones Urine 1+ (Negative); Leukocyte Esterase Urine Trace (Negative); Nitrate Urine Negative (Negative); Protein Urine 1+ (Negative); Specific Gravity, Urine 1.026 (1.005-1.030); Urine Appearance Clear (CLEAR); Urine Color Dark Yellow (Yellow); pH Urine 6.5 (5-7)
[2025-01-22 13:28] LABS: Bacteria Urine None Seen /hpf; Hyaline Casts Urine 9.91 /lpf; RBC Urine 0-2 /hpf (0-2); WBC Urine 0-5 /hpf (0-5)
[2025-01-22 13:48] LABS: Mucus Urine TRACE /hpf
== END 2025-01-22 14:24 | disposition home or self-care (01) ==
PROVIDERS: Emergency Provider Emergency Medicine; PCP Nurse Practitioner
DX: F84.0 Autistic disorder (principal); E86.0 Dehydration; Z11.52 Encounter for screening for COVID-19
CPT/HCPCS: 36415; 80053; 81001; 83605; 83690; 85025; 86140; 87040; 87637; 99283; J7030

== ENCOUNTER 2025-01-26 14:07 | Emergency (ER) | payer MEDICAID, SELFPAY ==
[2025-01-26 14:24] VITALS: BP 81/68; PULSE 118; RESP 22; TEMP 36.9; O2SAT 98
--- NOTE | 2025-01-26 14:39 | XRR_ITS ---
PROCEDURE INFORMATION: Exam: XR Chest Exam date and time: 01/26/2025 2:47 PM Age: 29 years old Clinical indication: Cough and dyspnea; Additional info: Dyspnea/cough TECHNIQUE: Imaging protocol: Radiologic exam of the chest. Views: 1 view. COMPARISON: CR XR chest 2V* [id number] 05/07/2023 11:18 AM FINDINGS: Lungs: Unremarkable. No consolidation. Pleural spaces: Unremarkable. No pleural effusion. No pneumothorax. Heart/Mediastinum: Unremarkable. No cardiomegaly. Bones/joints: Unremarkable. XR/XR chest 1V portable [id number] IMPRESSION: No acute findings.
--- NOTE | 2025-01-26 14:39 | ECG_ITS ---
[employer] Test Date: 2025-01-26 Pat Name: Gris Masters Department: Room: Gender: Female Crisis Intervention Specialist: : [id number] Requested By: Omid Maier Order Number: [id number] Radha MD: Yung Spencer M.D. Measurements Intervals [place] Rate: 108 P: 54 RI: 128 QRS: 48 QRSD: 85 T: 9 QT: 365 QTc: 491 Interpretive Statements SINUS TACH[address]ARD[address] ST DEVIATION AND MODERATE T-WAVE ABNORMALITY, CONSIDER ANTERIOR ISCHEMIA [-0.1+ mV T-WAVE IN V3/V4] Compared to ECG 05/20/2021 18:22:40 T-wave abnormality now present Possible ischemia now present Electronically Signed On 01-26-2025 21:19:28 CDT by Yung Spencer M.D. [email or web address]
--- NOTE | 2025-01-26 14:53 | ED_ITS ---
Documented by User: Omid Gray DO 01/28/25 06:26 HPI - Weakness 2 General: Chief complaint: Weakness Stated complaint: not eating or drinking, n/v, hasnt voided Time Seen by Provider: 01/26/25 14:38 History of Present Illness: 29-year-old female typically resides in a longterm. She is here with a group of caretakers reports she has been lethargic not eating or drinking. She has not voided since yesterday morning. She was seen 4 days ago for similar symptoms. Given IV fluids. She had 1 episode of vomiting this morning no hematochezia melena hematemesis or coffee-ground emesis. She was given an extra dose of pain medication today and recently had an increase in her valproic acid. No fever sweats or chills. No hematochezia or melena. No other housemates have been ill recently. Associated symptoms: Denies chest pain, chills, dysuria or fever(s) Review of Systems 2 Const: Denies: fever(s) or chills Card: Denies: chest pain Resp: Denies: dyspnea GI: Denies: abdominal pain : Denies: dysuria, urinary frequency or urinary urgency Musc: Denies: neck pain or back pain Skin/Breast: Denies: rash PFSH ED 2 PFSH: Medical History Acute bacterial conjunctivitis of left eye Psychiatric care Persistent mood [affective] disorder, unspecified On combination antipsychotic drug therapy On valproic acid therapy Depo-Provera contraceptive status Environmental and seasonal allergies On combination antipsychotic drug therapy Major depressive disorder, recurrent, unspecified Moderate intellectual disabilities Autistic disorder Surgical History No history of previous surgery Family History Other Cancer Social History Smoking and tobacco/nicotine status: never used tobacco/nicotine Second hand smoke exposure: No Alcohol intake: never Substance/Drug Use: never Adopted: No Caregiver/support person: Yes Lives independently: No Household members: other Housing: House Marital status: Single Number of children: 0 service: No Current occupational status: disabled Current occupational exposures/hazards: No Pets and animals: No Sexually active: No Do you think of yourself as: Straight/Heterosexual Current gender identity: Female Special maik needs: No Physical Exam 2 Const: GENERAL APPEARANCE: lethargic ORIENTATION/CONSCIOUSNESS: Yes lethargic HENMT: COMMON NORMALS: normocephalic, atraumatic and hearing grossly normal bilaterally HEAD & SCALP: normocephalic and atraumatic Resp: COMMON NORMALS: normal respiratory effort, No retractions, No use of accessory muscles and clear to auscultation bilaterally AUSCULTATION: clear to auscultation bilaterally Cardio: COMMON NORMALS: regular rate, regular rhythm and No murmurs present (Cardio) RATE: regular rate RHYTHM: regular rhythm GI: COMMON NORMALS: Soft to palpation and No hepatosplenomegaly present A USCULTATION: Yes normoactive bowel sounds PALPATION: Yes Soft to palpation, No Tenderness to palpation present (GI), No Guarding due to palpation present (GI) and Yes No hepatosplenomegaly present Extremity: COMMON NORMALS: normal to inspection, capillary refill normal, no clubbing, cyanosis or edema, no calf tenderness and no pedal edema Neuro: SENSORIUM/ORIENTATION: Yes lethargic Skin: COMMON NORMALS: no rashes or lesions noted GENERAL SKIN EXAM: no rashes or lesions noted Course 2 Vital Signs: Vital signs: Vital Signs Temperature 98.4 F 01/26/25 14:24 Pulse Rate 74 01/26/25 18:29 Respiratory Rate 22 H 01/26/25 14:24 Blood Pressure 132/91 01/26/25 18:29 Pulse Oximetry 98 01/26/25 18:29 Oxygen Delivery Me thod Room Air 01/26/25 15:30 MDM - Weakness Medical Decision Making Care signed out to Dr. Segura at change of shift. See final notes for diagnosis and disposition. Patient presents here with generalized weakness blood work imaging here showed no acute abnormalities they state it has been since she restarted her Topamax we will have him hold her Topamax for now and follow-up with her PCP they understand agree to plan Lab Data 01/26/25 15:24 01/26/25 15:24 Radiology Impressions Chest X-Ray 01/26/25 14:39 IMPRESSION: No acute findings. Abdomen/Pelvis CT 01/26/25 15:06 IMPRESSION: 1. No acute pathology. 2. Large amount of colonic stool. 3. [id number] hiatal hernia. 4. Minor findings noted above. Laboratory Results WBC 6.13 10^3/uL (3.29-11.43) 01/26/25 15:24 RBC 3.99 10^6/uL (3.85-5.65) 01/26/25 15:24 Hgb 12.90 g/dL (11.27-16.99) 01/26/25 15:24 Hct 39.2 % (36-47) 01/26/25 15:24 MCV 98.2 fl (85-98) H 01/26/25 15:24 MCH 32.3 pg (27-33) 01/26/25 15:24 MCHC 32.9 g/dL (30-55) 01/26/25 15:24 RDW 11.5 % (12.1-15.1) L 01/26/25 15:24 Plt Count 213 10^3/cmm (157-399) 01/26/25 15:24 MPV 10.8 fL (7.4-10.4) H 01/26/25 15:24 Neut % (Auto) 50.3 % 01/26/25 15:24 Lymph % (Auto) 36.2 % 01/26/25 15:24 Mclennan % (Auto) 12.9 % 01/26/25 15:24 Eos % (Auto) 0.0 % 01/26/25: Baso % (Auto) 0.3 % 01/26/25 15:24 Neut # (Auto) 3.08 10^3/uL (1.8-7.7) 01/26/25 15:24 Lymph # (Auto) 2.2 10^3/uL (0.8-4.8) 01/26/25 15:24 Mclennan # (Auto) 0.8 10^3/uL (0.2-0.9) 01/26/25 15:24 Eos # (Auto) 0.0 10^3/uL (0.0-0.8) 01/26/25 15:24 Baso # (Auto) 0.0 10^3/uL (0.0-0.1) 01/26/25 15:24 Nucleated RBC % (auto) 0 % 01/26/25 15:24 Nucleated RBCs # 0.0 /100WBC 01/26/25 15:24 Specimen Type Arterial 01/26/25 15:35 Sample Site Radial, left 01/26/25 15:35 ABG pH 7.38 (7.35-7.45) 01/26/25 15:35 ABG pCO2 30.8 mmHg (35-45) L 01/26/25 15:35 ABG pO2 86.7 mmHg (80.0-100.0) 01/26/25 15:35 ABG PO2/FiO2 Ratio 412 01/26/25 15:35 ABG HCO3 18.0 mmol/L (22-26) L 01/26/25 15:35 ABG O2 Saturation 96.7 01/26/25 15:35 ABG Base Excess -6.1 mmol/L (-2.0-2.0) L 01/26/25 15:35 Magen Test Pos 01/26/25 15:35 A-a O2 Gradient 3.1 mmHg (5-10) L 01/26/25 15:35 Hematocrit 38.8 % (37-47) 01/26/25 15:35 Hgb O2 Saturation 95.4 % (95-100) 01/26/25 15:35 Carboxyhemoglobin 0.5 %THgb (0.4-20.1) 01/26/25 15:35 Methemoglobin 0.9 % (0.4-1.5) 01/26/25 15:35 Total Hemoglobin 12.6 g/dL (12-16) 01/26/25 15:35 Sodium 140.0 mmol/L (131-143) 01/26/25 15:35 Potassium 3.5 mmol/L (3.5-5.0) 01/26/25 15:35 Glucose 99.0 mg/dL (70-115) 01/26/25 15:35 Ionized Calcium 1.2 mmol/L (1.1-1.4) 01/26/25 15:35 O2 Delivery Device Room air 01/26/25 15:35 FiO2 21.0 % 01/26/25 15:35 Sticker Machine Operator ID glc 01/26/25 15:35 Sodium 141 mmol/L (136-145) 01/26/25 15:24 Potassium 3.9 mmol/L (3.5-5.1) 01/26/25 15:24 Chloride 104 mmol/L (98-107) 01/26/25 15:24 Carbon Dioxide 22 mmol/L (22-29) 01/26/25 15:24 Anion Gap 18.9 (5-19) 01/26/25 15:24 BUN 9 mg/dL (6-20) 01/26/25 15:24 Creatinine 0.7 mg/dL (0.5-0.9) 01/26/25 15:24 GFR Calculation 97.6 mL/min (90-130) 01/26/25 15:24 Glucose 106 mg/dL (65-115) 01/26/25 15:24 Calculated Osmolality 291 mOsm/kg (285-295) 01/26/25 15:24 Lactic Acid 1.8 mmol/L (0.5-2.2) 01/26/25 15:24 Calcium 9.2 mg/dL (8.5-10.5) 01/26/25 15:24 Total Bilirubin 0.3 mg/dL (0.15-1.2) 01/26/25 15:24 AST 16 U/L (0-32) 01/26/25 15:24 ALT 9 U/L (0-33) 01/26/25 15:24 Alkaline Phosphatase 63 U/L (35-105) 01/26/25 15:24 Creatine Kinase 99 U/L (26-192) 01/26/25 15:24 Total Protein 7.2 g/dL (6.6-8.7) 01/26/25 15:24 Albumin 4.5 g/dL (3.5-5.2) 01/26/25 15:24 Globulin 2.7 g/dL (1.3-4.6) 01/26/25 15:24 Urine Color Dark yellow (Yellow) A 01/26/25 16:34 Urine Appearance Cloudy (CLEAR) A 01/26/25 16:34 Urine pH 6.5 (5-7) 01/26/25 16:34 Ur Specific [place] 1.032 (1.005-1.030) H 01/26/25 16:34 Urine Protein Trace (Negative) A 01/26/25 16:34 Urine Glucose (UA) Negative (Normal) 01/26/25 16:34 Urine Ketones Trace (Negative) 01/26/25 16:34 Urine Blood Negative (Negative) 01/26/25 16:34 Urine Nitrate Negative (Negative) 01/26/25 16:34 Urine Bilirubin Negative (Negative) 01/26/25 16:34 Urine Urobilinogen 1.0 mg/dL (Negative) 01/26/25 16:34 Ur Leukocyte Esterase Trace (Negative) A 01/26/25 16:34 Urine RBC 0-2 /hpf (0-2) 01/26/25 16:34 Urine WBC 0-5 /hpf (0-5) 01/26/25 16:34 Ur Squamous Epith Cells 0-5 /hpf (0-5) 01/26/25 16:34 Amorphous Sediment 1+ /hpf 01/26/25 16:34 Urine Bacteria None seen /hpf (NONE) 01/26/25 16:34 Hyaline Casts 12.81 /lpf 01/26/25 16:34 Fine Granular Casts 0-4 /lpf H 01/26/25 16:34 Valproic Acid 80.7 ug/mL (50-100) 01/26/25 15:24 Serum Ketones Negative (Negative) 01/26/25 15:24 Influenza A (PCR) Negative (Negative) 01/26/25 15:40 Influenza Type B (PCR) Negative (Negative) 01/26/25 15:40 RSV (PCR) Negative (Negative) 01/26/25 15:40 SARS-CoV-2 (PCR) Negative (Negative) 01/26/25 15:40 Discharge Plan Discharge Patient Disposition: Home Clinical Impression: Weakness Condition: Stable Prescriptions: Discontinued topiramate 50 mg tablet See Rx Instructions PO .COMPLEX Qty: 90 2RF Rx Instructions: 50 mg 8AM and 100mg 8PM orally; No Action Colace 100 mg capsule 100 mg PO BID@08,20 Qty: 60 2RF diphenhydramine HCl [Benadryl] 25 mg capsule 25 mg PO BID PRN (Reason: allergy symptoms) Qty: 30 2RF ibuprofen 200 mg tablet 200 mg PO Q12H PRN (Reason: pain) Qty: 60 5RF loperamide [Imodium A-D] 2 mg tablet 2 mg PO TID PRN (Reason: loose stool) Qty: 7 0RF Depo-Provera 150 mg/mL suspension 150 mg IM Q90D Qty: 1 2RF Miralax 17 gram/dose powder 17 g PO DAILY@08 Qty: 510 5RF Rx Instructions: may hold if loose stool three day. chlorpromazine 100 mg tablet 100 mg PO TID Qty: 90 4RF Rx Instructions: TAKE ONE TABLET BY MOUTH THREE TIMES DAILY (8AM,2PM,8PM) quetiapine 200 mg tablet 200 mg PO QPM Qty: 30 4RF Rx Instructions: TAKE ONE TABLET BY MOUTH EVERY NIGHT AT BEDTIME AT 8pm quetiapine 300 mg tablet 300 mg PO BID Qty: 60 4RF Rx Instructions: TAKE ONE TABLET BY MOUTH TWICE DAILY AT 8am AND 8pm lorazepam [Ativan] 0.5 mg tablet 0.5 mg PO QID Qty: 120 4RF Rx Instructions: @08:00,12:00,16:00,20:00 divalproex 250 mg tablet extended release 24 hr 250 mg PO DAILY Qty: 30 4RF Rx Instructions: in the am divalproex [Depakote ER] 500 mg tablet extended release 24 hr 500 mg PO .HS Qty: 30 4RF Rx Instructions: at bedtime Triple Antibiotic 3.5mg-400 unit- 5,000 unit/gram ointment 1 applic topical DAILY Qty: 1022.4 0RF naloxone [Narcan] 4 mg/actuation spray,non-aerosol 4 mg intranasal Q2M PRN (Reason: opioid overdose) Qty: 2 0RF Rx Instructions: spray 1 dose into ONE nostril; alternate nostrils w each dose until help arrives lorazepam 1 mg tablet 1 mg PO DAILY PRN (Reason: Agitation) Qty: 30 2RF clonidine HCl 0.1 mg tablet 0.1 mg PO TID@08,14,20 Qty: 90 2RF acetaminophen 325 mg tablet 650 mg PO Q6H PRN (Reason: pain or fever) Qty: 30 2RF Rx Instructions: for pain or elevated temp > 101F sertraline 100 mg tablet 200 mg PO DAILY Qty: 30 3RF Rx Instructions: TAKE TWO TABLETS (200mg) BY MOUTH EVERY DAY AT 8am Florajen Acidophilus 20 billion cell capsule 20,000 mmu cells PO DAILY Qty: 30 5RF trazodone 100 mg tablet 300 mg PO QPM Qty: 30 4RF Rx Instructions: TAKE THREE TABLETS BY MOUTH EVERY NIGHT AT BEDTIME AT 8PM Benadryl Itch Stopping 1-0.1 % cream 1 applic topical TID PRN (Reason: itching) promethazine-DM 6.25-15 mg/5 mL syrup 5 ml PO Q6H PRN (Reason: Cough) hydrocodone-acetaminophen 5-325 mg tablet 1 tab PO Q6H PRN (Reason: pain) Rx Instructions: 1 tab po prn with wound debridement at wound clinic visits Discharge Orders: Discharge ED (Routine); Ordered 01/26/25 Ordered By: Emelina Segura Referrals: Anayeli Carr, [facility] [Primary Care Provider] - Discharge Diet: Advance as tolerated Discharge Activity: Resume usual activity Patient Instructions: Weakness (ED) Activity Restrictions/Additional Instructions: stop topamax Print Language: Haitian Coding Level of Care Code ED Supervisor Pile Driving for Chg Fwd Related Data Home Medications ?Medication ?Instructions ?Recorded ?Confirmed diphenhydramine-zinc acetate 1 1 applic topical TID NV N itching 04/08/23 01/26/25 %-0.1 % topical cream (Benadryl Itch Stopping) hydrocodone 5 mg-acetaminophen 325 1 tab PO Q6H PRN pa in 01/22/25 01/26/25 mg tablet promethazine-DM 6.25 mg-15 mg/5 mL 5 ml PO Q6H PRN Cou gh 01/26/25 01/26/25 oral syrup Previous Rx's ?Medication ?Instructions ?Recorded diphenhydramine HCl 25 mg capsule 25 mg PO BID PRN all ergy symptoms 03/04/24 (Benadryl) #30 caps lorazepam 1 mg tablet 1 mg PO DAILY PRN Agitation #30 08/20/24 tabs ibuprofen 200 mg tablet 200 mg PO Q12H PRN pain #60 tabs 08/27/24 loperamide 2 mg tablet (Imodium 2 mg PO TID PRN loose stool #7 tabs 08/27/24 A-D) medroxyprogesterone 150 mg/mL 150 mg IM Q90D #1 mL intramuscular suspension (Depo-Provera) polyethylene glycol 3350 17 17 g PO DAILY@08 constipat ion #510 08/27/24 gram/dose oral powder (Miralax) grams clonidine HCl 0.1 mg tablet 0.1 mg PO TID@08,14,20 #90 tabs 09/24/24 chlorpromazine 100 mg tablet 100 mg PO TID #90 tabs divalproex 250 mg tablet,extended 250 mg PO DAILY #30 tabs 10/26/24 release 24 hr divalproex 500 mg tablet,extended 500 mg PO .HS #30 ta bs 10/26/24 release 24 hr (Depakote ER) lorazepam 0.5 mg tablet (Ativan) 0.5 mg PO QID anxiety #120 tabs 10/26/24 quetiapine 200 mg tablet 200 mg PO QPM #30 tabs 10/26 quetiapine 300 mg tablet 300 mg PO BID #60 tabs 10/26 neomycin-bacitracn Zn-polymyx 3.5 1 applic topical ISMAEL LY #1,022.4 11/03/24 mg-400 unit-5,000 unit/gram top grams oint (Triple Antibiotic) docusate sodium 100 mg capsule 100 mg PO BID@, #60 caps 11/09/24 (Colace) acetaminophen 325 mg tablet 650 mg (2 x 325 mg) PO Q6H PRN 11/15/24 pain or fever #30 tabs sertraline 100 mg tablet 200 mg (2 x 100 mg) PO DAILY #30 11/30/24 tabs Lactobacillus acidophilus 20 20,000 mmu cells PO DAILY #30 caps 12/23/24 billion cell capsule (Florajen Acidophilus) naloxone 4 mg/actuation nasal 4 mg intranasal Q2M PRN opioid 12/23/24 spray (Narcan) overdose #2 ea trazodone 100 mg tablet 300 mg (3 x 100 mg) PO QPM # 30 tabs 12/30/24 Allergies Allergy/AdvReac Type Severity Reaction Status Date / Time grape Allergy Mild ALGY-Rash Verified 12/01/24 11:17 Documented by User: Emelina Segura MD 01/26/25 18:33 HPI - Weakness 2 General: Chief complaint: Weakness Stated complaint: not eating or drinking, n/v, hasnt voided Time Seen by Provider: 01/26/25 14:38 PFSH ED 2 PFSH: Medical History Acute bacterial conjunctivitis of left eye Psychiatric care Persistent mood [affective] disorder, unspecified On combination antipsychotic drug therapy On valproic acid therapy Depo-Provera contraceptive status Environmental and seasonal allergies On combination antipsychotic drug therapy Major depressive disorder, recurrent, unspecified Moderate intellectual disabilities Autistic disorder Surgical History No history of previous surgery Family History Other Cancer Social History Smoking and tobacco/nicotine status: never used tobacco/nicotine Second hand smoke exposure: No Alcohol intake: never Substance/Drug Use: never Adopted: No Caregiver/support person: Yes Lives independently: No Household members: other Housing: House Marital status: Single Number of children: 0 service: No Current occupational status: disabled Current occupational exposures/hazards: No Pets and animals: No Sexually active: No Do you think of yourself as: Straight/Heterosexual Current gender identity: Female Special maik needs: No Course 2 Vital Signs: Vital signs: Vital Signs Temperature 98.4 F 01/26/25 14:24 Pulse Rate 74 01/26/25 18:29 Respiratory Rate 22 H 01/26/25 14:24 Blood Pressure 132/91 01/26/25 18:29 Pulse Oximetry 98 01/26/25 18:29 Oxygen Delivery Me thod Room Air 01/26/25 15:30 MDM - Weakness Medical Decision Making Patient presents here with generalized weakness blood work imaging here showed no acute abnormalities they state it has been since she restarted her Topamax we will have him hold her Topamax for now and follow-up with her PCP they understand agree to plan Medical Records I reviewed the patient's medical records. Lab Data I reviewed the patient's lab results. 01/26/25 15:24 01/26/25 15:24 Radiology Impressions Chest X-Ray 01/26/25 14:39 IMPRESSION: No acute findings. Abdomen/Pelvis CT 01/26/25 15:06 IMPRESSION: 1. No acute pathology. 2. Large amount of colonic stool. 3. [id number] hiatal hernia. 4. Minor findings noted above. Laboratory Results WBC 6.13 10^3/uL (3.29-11.43) 01/26/25 15:24 RBC 3.99 10^6/uL (3.85-5.65) 01/26/25 15:24 Hgb 12.90 g/dL (11.27-16.99) 01/26/25 15:24 Hct 39.2 % (36-47) 01/26/25 15:24 MCV 98.2 fl (85-98) H 01/26/25 15:24 MCH 32.3 pg (27-33) 01/26/25 15:24 MCHC 32.9 g/dL (30-55) 01/26/25 15:24 RDW 11.5 % (12.1-15.1) L 01/26/25 15:24 Plt Count 213 10^3/cmm (157-399) 01/26/25 15:24 MPV 10.8 fL (7.4-10.4) H 01/26/25 15:24 Neut % (Auto) 50.3 % 01/26/25 15:24 Lymph % (Auto) 36.2 % 01/26/25 15:24 Mclennan % (Auto) 12.9 % 01/26/25 15:24 Eos % (Auto) 0.0 % 01/26/25 15:24 Baso % (Auto) 0.3 % 01/26/25 15:24 Neut # (Auto) 3.08 10^3/uL (1.8-7.7) 01/26/25 15:24 Lymph # (Auto) 2.2 10^3/uL (0.8-4.8) 01/26/25 15:24 Mclennan # (Auto) 0.8 10^3/uL (0.2-0.9) 01/26/25 15:24 Eos # (Auto) 0.0 10^3/uL (0.0-0.8) 01/26/25 15: Baso # (Auto) 0.0 10^3/uL (0.0-0.1) 01/26/25 15: Nucleated RBC % (auto) 0 % 01/26/25 15: Nucleated RBCs # 0.0 /100WBC 01/26/25 15:24 Specimen Type Arterial 01/26/25 15:35 Sample Site Radial, left 01/26/25 15:35 ABG pH 7.38 (7.35-7.45) 01/26/25 15:35 ABG pCO2 30.8 mmHg (35-45) L 01/26/25 15:35 ABG pO2 86.7 mmHg (80.0-100.0) 01/26/25 15:35 ABG PO2/FiO2 Ratio 412 01/26/25 15:35 ABG HCO3 18.0 mmol/L (22-26) L 01/26/25 15:35 ABG O2 Saturation 96.7 01/26/25 15:35 ABG Base Excess -6.1 mmol/L (-2.0-2.0) L 01/26/25 15:35 Magen Test Pos 01/26/25 15:35 A-a O2 Gradient 3.1 mmHg (5-10) L 01/26/25 15:35 Hematocrit 38.8 % (37-47) 01/26/25 15:35 Hgb O2 Saturation 95.4 % (95-100) 01/26/25 15:35 Carboxyhemoglobin 0.5 %THgb (0.4-20.1) 01/26/25 15:35 Methemoglobin 0.9 % (0.4-1.5) 01/26/25 15:35 Total Hemoglobin 12.6 g/dL (12-16) 01/26/25 15:35 Sodium 140.0 mmol/L (131-143) 01/26/25 15:35 Potassium 3.5 mmol/L (3.5-5.0) 01/26/25 15:35 Glucose 99.0 mg/dL (70-115) 01/26/25 15:35 Ionized Calcium 1.2 mmol/L (1.1-1.4) 01/26/25 15:35 O2 Delivery Device Room air 01/26/25 15:35 FiO2 21.0 % 01/26/25 15:35 Sticker Machine Operator ID glc 01/26/25 15:35 Sodium 141 mmol/L (136-145) 01/26/25 15:24 Potassium 3.9 mmol/L (3.5-5.1) 01/26/25 15:24 Chloride 104 mmol/L (98-107) 01/26/25 15:24 Carbon Dioxide 22 mmol/L (22-29) 01/26/25 15:24 Anion Gap 18.9 (5-19) 01/26/25 15:24 BUN 9 mg/dL (6-20) 01/26/25 15:24 Creatinine 0.7 mg/dL (0.5-0.9) 01/26/25 15:24 GFR Calculation 97.6 mL/min (90-130) 01/26/25 15:24 Glucose 106 mg/dL (65-115) 01/26/25 15:24 Calculated Osmolality 291 mOsm/kg (285-295) 01/26/25 15:24 Lactic Acid 1.8 mmol/L (0.5-2.2) 01/26/25 15:24 Calcium 9.2 mg/dL (8.5-10.5) 01/26/25 15:24 Total Bilirubin 0.3 mg/dL (0.15-1.2) 01/26/25 15:24 AST 16 U/L (0-32) 01/26/25 15:24 ALT 9 U/L (0-33) 01/26/25 15:24 Alkaline Phosphatase 63 U/L (35-105) 01/26/25 15:24 Creatine Kinase 99 U/L (26-192) 01/26/25 15:24 Total Protein 7.2 g/dL (6.6-8.7) 01/26/25 15:24 Albumin 4.5 g/dL (3.5-5.2) 01/26/25 15:24 Globulin 2.7 g/dL (1.3-4.6) 01/26/25 15:24 Urine Color Dark yellow (Yellow) A 01/26/25 16:34 Urine Appearance Cloudy (CLEAR) A 01/26/25 16:34 Urine pH 6.5 (5-7) 01/26/25 16:34 Ur Specific [place] 1.032 (1.005-1.030) H 01/26/25 16:34 Urine Protein Trace (Negative) A 01/26/25 16:34 Urine Glucose (UA) Negative (Normal) 01/26/25 16:34 Urine Ketones Trace (Negative) 01/26/25 16:34 Urine Blood Negative (Negative) 01/26/25 16:34 Urine Nitrate Negative (Negative) 01/26/25 16:34 Urine Bilirubin Negative (Negative) 01/26/25 16:34 Urine Urobilinogen 1.0 mg/dL (Negative) 01/26/25 16:34 Ur Leukocyte Esterase Trace (Negative) A 01/26/25 16:34 Urine RBC 0-2 /hpf (0-2) 01/26/25 16:34 Urine WBC 0-5 /hpf (0-5) 01/26/25 16:34 Ur Squamous Epith Cells 0-5 /hpf (0-5) 01/26/25 16:34 Amorphous Sediment 1+ /hpf 01/26/25 16:34 Urine Bacteria None seen /hpf (NONE) 01/26/25 16:34 Hyaline Casts 12.81 /lpf 01/26/25 16:34 Fine Granular Casts 0-4 /lpf H 01/26/25 16:34 Valproic Acid 80.7 ug/mL (50-100) 01/26/25 15:24 Serum Ketones Negative (Negative) 01/26/25 15:24 Influenza A (PCR) Negative (Negative) 01/26/25 15:40 Influenza Type B (PCR) Negative (Negative) 01/26/25 15:40 RSV (PCR) Negative (Negative) 01/26/25 15:40 SARS-CoV-2 (PCR) Negative (Negative) 01/26/25 15:40 All radiology interpretation(s) finalized by discharge Discharge Plan Discharge Patient Disposition: Home Clinical Impression: Weakness Condition: Stable Prescriptions: Discontinued topiramate 50 mg tablet See Rx Instructions PO .COMPLEX Qty: 90 2RF Rx Instructions: 50 mg 8AM and 100mg 8PM orally; No Action Colace 100 mg capsule 100 mg PO BID@08,20 Qty: 60 2RF diphenhydramine HCl [Benadryl] 25 mg capsule 25 mg PO BID PRN (Reason: allergy symptoms) Qty: 30 2RF ibuprofen 200 mg tablet 200 mg PO Q12H PRN (Reason: pain) Qty: 60 5RF loperamide [Imodium A-D] 2 mg tablet 2 mg PO TID PRN (Reason: loose stool) Qty: 7 0RF Depo-Provera 150 mg/mL suspension 150 mg IM Q90D Qty: 1 2RF Miralax 17 gram/dose powder 17 g PO DAILY@08 Qty: 510 5RF Rx Instructions: may hold if loose stool three day. chlorpromazine 100 mg tablet 100 mg PO TID Qty: 90 4RF Rx Instructions: TAKE ONE TABLET BY MOUTH THREE TIMES DAILY (8AM,2PM,8PM) quetiapine 200 mg tablet 200 mg PO QPM Qty: 30 4RF Rx Instructions: TAKE ONE TABLET BY MOUTH EVERY NIGHT AT BEDTIME AT 8pm quetiapine 300 mg tablet 300 mg PO BID Qty: 60 4RF Rx Instructions: TAKE ONE TABLET BY MOUTH TWICE DAILY AT 8am AND 8pm lorazepam [Ativan] 0.5 mg tablet 0.5 mg PO QID Qty: 120 4RF Rx Instructions: @08:00,12:00,16:00,20:00 divalproex 250 mg tablet extended release 24 hr 250 mg PO DAILY Qty: 30 4RF Rx Instructions: in the am divalproex [Depakote ER] 500 mg tablet extended release 24 hr 500 mg PO .HS Qty: 30 4RF Rx Instructions: at bedtime Triple Antibiotic 3.5mg-400 unit- 5,000 unit/gram ointment 1 applic topical DAILY Qty: 1022.4 0RF naloxone [Narcan] 4 mg/actuation spray,non-aerosol 4 mg intranasal Q2M PRN (Reason: opioid overdose) Qty: 2 0RF Rx Instructions: spray 1 dose into ONE nostril; alternate nostrils w each dose until help arrives lorazepam 1 mg tablet 1 mg PO DAILY PRN (Reason: Agitation) Qty: 30 2RF clonidine HCl 0.1 mg tablet 0.1 mg PO TID@08,14,20 Qty: 90 2RF acetaminophen 325 mg tablet 650 mg PO Q6H PRN (Reason: pain or fever) Qty: 30 2RF Rx Instructions: for pain or elevated temp > 101F sertraline 100 mg tablet 200 mg PO DAILY Qty: 30 3RF Rx Instructions: TAKE TWO TABLETS (200mg) BY MOUTH EVERY DAY AT 8am Florajen Acidophilus 20 billion cell capsule 20,000 mmu cells PO DAILY Qty: 30 5RF trazodone 100 mg tablet 300 mg PO QPM Qty: 30 4RF Rx Instructions: TAKE THREE TABLETS BY MOUTH EVERY NIGHT AT BEDTIME AT 8PM Benadryl Itch Stopping 1-0.1 % cream 1 applic topical TID PRN (Reason: itching) promethazine-DM 6.25-15 mg/5 mL syrup 5 ml PO Q6H PRN (Reason: Cough) hydrocodone-acetaminophen 5-325 mg tablet 1 tab PO Q6H PRN (Reason: pain) Rx Instructions: 1 tab po prn with wound debridement at wound clinic visits Discharge Orders: Discharge ED (Routine); Ordered 01/26/25 Ordered By: Emelina Segura Referrals: Anayeli Carr, [employer] [facility] [Primary Care Provider] - Discharge Diet: Advance as tolerated Discharge Activity: Resume usual activity Patient Instructions: Weakness (ED) Activity Restrictions/Additional Instructions: stop topamax Print Language: Haitian Coding Level of Care Code ED Supervisor Pile Driving for Chg Fwd Related Data Home Medications ?Medication ?Instructions ?Recorded ?Confirmed diphenhydramine-zinc acetate 1 1 applic topical TID NV N itching 04/08/23 01/26/25 %-0.1 % topical cream (Benadryl Itch Stopping) hydrocodone 5 mg-acetaminophen 325 1 tab PO Q6H PRN pa in 01/22/25 01/26/25 mg tablet promethazine-DM 6.25 mg-15 mg/5 mL 5 ml PO Q6H PRN Cou gh 01/26/25 01/26/25 oral syrup Previous Rx's ?Medication ?Instructions ?Recorded diphenhydramine HCl 25 mg capsule 25 mg PO BID PRN all ergy symptoms 03/04/24 (Benadryl) #30 caps lorazepam 1 mg tablet 1 mg PO DAILY PRN Agitation #30 08/20/24 tabs ibuprofen 200 mg tablet 200 mg PO Q12H PRN pain #60 tabs 08/27/24 loperamide 2 mg tablet (Imodium 2 mg PO TID PRN loose stool #7 tabs 08/27/24 A-D) medroxyprogesterone 150 mg/mL 150 mg IM Q90D #1 mL intramuscular suspension (Depo-Provera) polyethylene glycol 3350 17 17 g PO DAILY@08 constipat ion #510 08/27/24 gram/dose oral powder (Miralax) grams clonidine HCl 0.1 mg tablet 0.1 mg PO TID@08,14,20 #90 tabs 09/24/24 chlorpromazine 100 mg tablet 100 mg PO TID #90 tabs divalproex 250 mg tablet,extended 250 mg PO DAILY #30 tabs 10/26/24 release 24 hr divalproex 500 mg tablet,extended 500 mg PO .HS #30 ta bs 10/26/24 release 24 hr (Depakote ER) lorazepam 0.5 mg tablet (Ativan) 0.5 mg PO QID anxiety #120 tabs 10/26/24 quetiapine 200 mg tablet 200 mg PO QPM #30 tabs 10/26 quetiapine 300 mg tablet 300 mg PO BID #60 tabs 10/26 neomycin-bacitracn Zn-polymyx 3.5 1 applic topical ISMAEL LY #1,022.4 11/03/24 mg-400 unit-5,000 unit/gram top grams oint (Triple Antibiotic) docusate sodium 100 mg capsule 100 mg PO BID@08,20 #60 caps 11/09/24 (Colace) acetaminophen 325 mg tablet 650 mg (2 x 325 mg) PO Q6H PRN 11/15/24 pain or fever #30 tabs sertraline 100 mg tablet 200 mg (2 x 100 mg) PO DAILY #30 11/30/24 tabs Lactobacillus acidophilus 20 20,000 mmu cells PO DAILY #30 caps 12/23/24 billion cell capsule (Florajen Acidophilus) naloxone 4 mg/actuation nasal 4 mg intranasal Q2M PRN opioid 12/23/24 spray (Narcan) overdose #2 ea trazodone 100 mg tablet 300 mg (3 x 100 mg) PO QPM # 30 tabs 12/30/24 Allergies Allergy/AdvReac Type Severity Reaction Status Date / Time grape Allergy Mild ALGY-Rash Verified 12/01/24 11:17
--- NOTE | 2025-01-26 15:06 | CTR_ITS ---
PROCEDURE INFORMATION: Exam: CT Abdomen And Pelvis With Contrast Exam date and time: 01/26/2025 4:12 PM Age: 29 years old Clinical indication: Abdominal pain; Generalized; Additional info: Abd pain TECHNIQUE: Imaging protocol: Computed tomography of the abdomen and pelvis with contrast. Radiation optimization: All CT scans at this facility use at least one of these dose optimization techniques: automated exposure control; mA and/or kV adjustment per patient size (includes targeted exams where dose is matched to clinical indication); or iterative reconstruction. Contrast material: OMNIPAQUE 350; Contrast volume: 100 ml; Contrast route: INTRAVENOUS (IV); COMPARISON: CR XR abdomen 1V* [id number] 12/18/2024 11:07 AM RADIATION DOSE METRICS: Total DLP (mGy-cm): 1348.05 FINDINGS: Lungs: Evaluation of the visualized lungs limited by respiratory degradation. Ground-glass and streaky opacities are nonspecific in the setting. Pleural spaces: No pleural effusion. Diaphragm: Uqjoc-[id number]-gdckxnjt hiatal hernia. Liver: 8 mm left hepatic lobe cyst. Gallbladder and biliary ducts: No significant gallbladder pathology. No biliary dilatation. Pancreas: No significant pancreatic pathology. Spleen: No significant splenic pathology. Adrenal glands: No significant adrenal pathology. Kidneys and ureters: No significant renal pathology. Stomach and bowel: Large amount of colonic stool. Appendix: Appendix within normal limits. Intraperitoneal space: No ascites. Vasculature: No abdominal aortic aneurysm. Lymph nodes: No evidence of lymphadenopathy. No evidence of lymphadenopathy. Urinary bladder: No significant pathology. Reproductive: No significant uterine pathology. No significant adnexal pathology. Bones/joints: Mild dextrocurvature of the lumbar spine. Reverse listhesis of L4 on L5. Soft tissues: Evaluation limited by artifacts related to patient inability to elevate arms. Other findings: No significant thyroid pathology. CT/CT abdomen pelvis w con* [id number] IMPRESSION: 1. No acute pathology. 2. Large amount of colonic stool. 3. Vcrck-wb-asgumgyz hiatal hernia. 4. Minor findings noted above.
[2025-01-26 15:30] VITALS: BP 104/82; PULSE 98; O2SAT 96
[2025-01-26] MEDS: sodium chloride 0.9% 1,905.09 ML 1905.09 ML IV (15:31)
[2025-01-26 15:39] LABS: Basophils % 0.3 %; Hematocrit 39.2 % (36-47); Lymphocytes # 2.2 10^3/uL (0.8-4.8); Lymphocytes % 36.2 %; Mean Corpuscular HGB Conc 32.9 g/dL (30-55); Mean Corpuscular Hemoglobin 32.3 pg (27-33); Mean Corpuscular Volume 98.2 fl (85-98); Mean Platelet Volume 10.8 fL (7.4-10.4); Monocytes # 0.8 10^3/uL (0.2-0.9); Monocytes % 12.9 %; Neutrophils # 3.08 10^3/uL (1.8-7.7); Neutrophils % 50.3 %; Nucleated Red Blood Cells % 0 %; Platelet Count 213 10^3/cmm (157-399); Red Blood Count 3.99 10^6/uL (3.85-5.65); Red Cell Distribution Width 11.5 % (12.1-15.1); White Blood Count 6.13 10^3/uL (3.29-11.43)
[2025-01-26 15:46] LABS: ABG PCO2 30.8 mmHg (35-45); ABG PH Result 7.38 (7.35-7.45); Alveolar-Arterial Oxygen Gradi 3.1 mmHg (5-10); Arterial Blood Gas Hematocrit 38.8 % (37-47); Base Excess ABG -6.1 mmol/L (-2.0-2.0); Blood Gas Allen Test Pos; Blood Gas Operator Identificat glc; Blood Gas Sample Site Radial, left; Blood Gas Sample Type Arterial; Carboxyhemoglobin 0.5 %THgb (0.4-20.1); HGB O2 Sat 95.4 % (95-100); Ionized Calcium Level - ABG 1.2 mmol/L (1.1-1.4); Methemoglobin 0.9 % (0.4-1.5); Oxygen Device ROOM AIR; Oxygen Saturation ABG 96.7; PO2 ABG 86.7 mmHg (80.0-100.0); PO2 FiO2 Ratio Arterial Blood 412; Potassium Level - ABG 3.5 mmol/L (3.5-5.0); Total Hemoglobin 12.6 g/dL (12-16)
[2025-01-26 15:59] LABS: Lactic Sepsis W/Reflex 1.8 mmol/L (0.5-2.2)
[2025-01-26 16:11] LABS: Ketone (Acetest) Serum Negative (Negative)
[2025-01-26 16:17] LABS: Valproic Acid Level 80.7 ug/mL (50-100)
[2025-01-26 16:18] LABS: Alanine Aminotransferase 9 U/L (0-33); Albumin Level 4.5 g/dL (3.5-5.2); Alkaline Phosphatase 63 U/L (35-105); Anion Gap 18.9 (5-19); Aspartate Amino Transferase 16 U/L (0-32); Blood Urea Nitrogen 9 mg/dL (6-20); Calcium 9.2 mg/dL (8.5-10.5); Carbon Dioxide 22 mmol/L (22-29); Chloride 104 mmol/L (98-107); Creatine Phosphokinase 99 U/L (26-192); Creatinine Clr Calc Pharmacy 109.5645; Globulin 2.7 g/dL (1.3-4.6); Glomerular Filtration Rate 97.6 mL/min (90-130); Glucose 106 mg/dL (65-115); Osmolality Calculated 291 mOsm/kg (285-295); Potassium 3.9 mmol/L (3.5-5.1); Sodium 141 mmol/L (136-145); Total Bilirubin 0.3 mg/dL (0.15-1.2); Total Protein 7.2 g/dL (6.6-8.7)
[2025-01-26] MEDS: iohexol 350 mg/mL 500 mL Btl (per mL) IV (16:22)
[2025-01-26 16:32] LABS: Influenza A NEGATIVE (Negative); Influenza B NEGATIVE (Negative); Respiratory Syncytial Virus Ce NEGATIVE (Negative); SARS-CoV-2 PCR NEGATIVE (Negative)
[2025-01-26 16:50] LABS: Bilirubin Urine Negative (Negative); Blood Urine Negative (Negative); Glucose Urine UA Negative (Normal); Ketones Urine Trace (Negative); Leukocyte Esterase Urine Trace (Negative); Nitrate Urine Negative (Negative); Protein Urine Trace (Negative); Urine Appearance Cloudy (CLEAR); Urine Color Dark Yellow (Yellow); pH Urine 6.5 (5-7)
[2025-01-26 16:55] LABS: Add Urine Microscopic? YES; Bacteria Urine None Seen /hpf; Hyaline Casts Urine 12.81 /lpf; RBC Urine 0-2 /hpf (0-2); Squamous Epithelial Cell Urine 0-5 /hpf (0-5); WBC Urine 0-5 /hpf (0-5)
[2025-01-26 17:47] LABS: Specific Gravity, Urine 1.032 (1.005-1.030)
[2025-01-26 17:48] LABS: UA Slide Review UA Slide Review Perf
[2025-01-26 17:49] LABS: Add Urine Culture? No; Amorphous Sediment Urine 1+ /hpf; Fine Granular Casts Urine 0-4 /lpf
[2025-01-26 18:29] VITALS: BP 132/91; PULSE 74; O2SAT 98
== END 2025-01-26 18:30 | disposition home or self-care (01) ==
PROVIDERS: Family Medicine; Emergency Provider Emergency Medicine; PCP Nurse Practitioner
DX: R53.1 Weakness (principal); Z11.52 Encounter for screening for COVID-19
CPT/HCPCS: 36415; 36600; 71045; 74177; 80051; 80053; 80164; 80201; 81001; 82009; 82330; 82550; 82805; 83605; 85025; 87637; 93005; 96360; 96361; 97597; 99285; A6210; J7030

== ENCOUNTER → 2025-02-02 09:56 | Outpatient (BNVA) | payer MEDICAID, SELFPAY | PROVIDERS: PCP Nurse Practitioner; Visit Provider Thoracic Surgery (Cardiothoracic Vascular Surgery) | DX: I96 Gangrene, not elsewhere classified (principal); L89.620 Pressure ulcer of left heel, unstageable; Z09 Encounter for follow-up examination after completed treatment for conditions other than malignant neoplasm; Z87.2 Personal history of diseases of the skin and subcutaneous tissue | CPT/HCPCS: 97597; A6210 ==

== ENCOUNTER → 2025-02-09 10:35 | Outpatient (BNVA) | payer MEDICAID, SELFPAY | PROVIDERS: PCP Nurse Practitioner; Visit Provider Thoracic Surgery (Cardiothoracic Vascular Surgery) | DX: Z09 Encounter for follow-up examination after completed treatment for conditions other than malignant neoplasm (principal); Z87.2 Personal history of diseases of the skin and subcutaneous tissue | CPT/HCPCS: 99212; A6212 ==

== ENCOUNTER 2025-02-18 09:51 | Outpatient (CLI) | payer MEDICAID, SELFPAY ==
--- NOTE | 2025-02-18 09:30 | CT_ITS ---
WS: [id number] CT HEAD TECHNIQUE: Noncontrast CT of the head obtained from the skullbase to the vertex. CLINICAL INFORMATION: R29.90 - Unspecified symptoms and signs involving the ner... COMPARISON: None. DLP: 1003.[address] scans at [facility] use at least one of these dose optimization techniques: automated exposure control; mA and/or kV adjustment per patient size (includes targeted exams where dose is matched to clinical indication); or iterative reconstruction. FINDINGS: No evidence of intracranial hemorrhage or mass effect. Ventricular system and basal cisterns are patent. No extra-axial fluid collections. No evidence of mass or mass effect. Normal duncan-white differentiation. Paranasal sinuses and mastoid air cells are well aerated. .Normal visualized soft tissues. CT/CT head wo con* [id number] IMPRESSION: 1. No evidence of intracranial hemorrhage or mass effect. 2. No acute intracranial findings.
== END 2025-02-18 09:52 | disposition home or self-care (01) ==
LOC: RAD 09:52
PROVIDERS: PCP Nurse Practitioner; Visit Provider Nurse Practitioner
DX: R29.90 Unspecified symptoms and signs involving the nervous system (principal)
CPT/HCPCS: 70450